=== PATIENT | female | born 1965 | race Caucasian/White ===

== ENCOUNTER 2019-02-14 14:53 | Emergency (ER) | payer OTHER, SELFPAY ==
[2019-02-14 14:56] VITALS: BP 138/87; PULSE 104; RESP 16; TEMP 36.6; O2SAT 96; BMI 28.8
--- NOTE | 2019-02-14 15:43 | ED.DCSUM_ITS ---
- ER Visit Summary Date of Service: 02/14/19 Chief Complaint: Depression History of Present Illness: The patient is a 53 F who presents with depression that is been getting worse for the past couple days. Patient started having a sinus infection 1 week ago. Family states that the patient has not been talking much, eating, or drinking much over the past 2 to 3 days. Patient denies any suicidal thoughts. Patient denies any plan. Physical Examination: Vital signs are stable. Patient is afebrile. Patient is in no acute distress. Oral mucosa is pink and moist. Neck is supple. Trachea is midline. There is no JVD. Heart was regular rate and rhythm. Lungs are clear and equal bilaterally. Abdomen is soft. Bowel sounds are normal. There is no tenderness. Cranial nerves II through XII are intact. There are no focal motor or sensory deficits noted. Patient does have a flat affect and depressed mood. Test Results: CBC shows a mild leukocytosis. This is likely due to her recent sinus infection. Metabolic profile is within normal limits. Urinalysis does not show any evidence of urinary tract infection. Urine tox screen was negative. Serum alcohol level was negative. Emergency Department Course and Treatment: Patient has not been caring for herself at home. Social work was in to evaluate the patient and feels the patient would benefit from placement. I agree with this. Patient is medically cleared. [place] slip was placed in the chart. Social work will attempt to find placement for the patient. Patient and family understand and are agreeable with the plan. All questions were answered. Psychiatry recommended a CT scan of the brain. This was ordered and was negative. Disposition: Transfer to psychiatric facility Impression: 1. Depression This note was generated with [employer] dictation software. It may contain incorrect words, spelling, and punctuation that were not noted in review of the chart prior to signing ED Disposition - Plan for ED Patient: Disposition: Psychiatric Hospital or Unit Diagnosis: Depression Referrals: Abimbola Schwartz NP-C [Primary Care Provider] -
--- NOTE | 2019-02-14 15:45 | RAD_ITS ---
STUDY: X-RAY CHEST REASON FOR EXAM: Female, 53 years old. Depression TECHNIQUE: Frontal view of the chest COMPARISON: None. FINDINGS: The lungs are clear. There are no pleural effusions. There is no pneumothorax. The heart is normal in size. The visualized osseous structures are within normal limits. RAD/Chest 1 View (Portable) IMPRESSION: No acute thoracic pathology. Electronically Signed: Ramo Rizvi, at 16:52 EST Tel , Service support ,
[2019-02-14 16:10] LABS: Absolute Lymphocyte Count 2.43 X10^3/uL (0.83-4.51); Absolute Neutrophil Count 9.5 X10^3/uL (2.0-7.7); Basophil# 0.05 X10^3/uL; Basophil% 0.4 % (0-1); Eosinophil# 0.04 X10^3/uL; Eosinophils% 0.3 % (0-5); Hemoglobin 15.7 g/dL (12.0-15.0); Lymphocyte # 2.43 X10^3/ul (4.0); Lymphocyte % 18.5 % (19-41); Mean Corp Hgb Conc 33.4 g/dL (32-36); Mean Corpuscular Hgb 29.3 pg (27.0-32.0); Mean Corpuscular Volume 87.9 fL (81-99); Mean Platelet Vol. 8.8 fl (6.2-12.0); Monocyte% 7.6 % (0-10); NRBC Flagged by Analyzer 0 % (0-5); Neutrophil # 9.51 X10^3/uL (2.7-7.7); Neutrophil % 72.7 % (47-70); Platelet Count 272 K/mm3 (150-450); RBC Distribution Width CV 12.4 % (11.6-14.6); RBC Distribution Width SD 40.3 fl (35.1-43.9); Red Blood Count 5.35 M/mm3 (4.2-5.4); White Blood Count 13.1 K/mm3 (4.4-11.0)
[2019-02-14 16:20] LABS: Anion Gap 9 (5-15); BUN 16 mg/dL (7-18); Chloride 105 mmol/L (98-107); Creatinine, Serum 0.73 mg/dL (0.55-1.02); EST Glomerular Filtration Rate 89 mL/min (>60); Est Glom Filt Rate - Afr Amer 108 mL/min (>60); Estimated Creatinine Clearance 81.12 ml/min; Glucose 85 mg/dL (74-106); Potassium 3.5 mmol/L (3.5-5.1); Sodium Level 141 mmol/L (136-145)
--- NOTE | 2019-02-14 16:35 | CM.ED ---
Social Work Consult: Depression Informant: Dr. Kaur Chief Complaint: Per patient family patient has been non-verbal since Sunday. Patient has also been not sleeping, eating, drinking, or dressing self per family. Marital/Social History: to Sj for the past 32 years. Patient has four adult children, three of which are actively involved in patient life. Stressors/Triggers: Per patient family. Patient son, Tejas communicated to the family years ago to be bolanos. Per Sj Tejas brought Tejas's patient significant other to [facility] last year and this upset the patient. Patient family stating that it was communicated to Tejas that Tejas is welcome to come to family functions but that Tejas's significant other is not welcome to family events. Tejas as not been at a family event since. Family believe that patient started thinking about this. Patient is agreeing to this statement by slightly shaking head in an up and down motion. Patient with a sinus infection this past weekend and was in a room alone for some time. Patient family thinking that patient started to think about the situation with Tejas as the holiday's were approaching. Living Situation: Lives with spouse. Support/Resources: Patient daughter Autumn and present. Patient has support from family members. Autumn tearful throughout assessment/interaction with patient. Education/Employment: High School diploma. 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 Per Autumn patient had Sj call into work for patient this past week and call off work for patient. Mental Health Treatment/History: No current mental health history. Sj stating that patient did have depression once years ago. Patient was treated for the depression with medication. When asking patient if the medication helped patient, patient slightly shook her head no. Sj stating to believe that the medication was helpful for patient. Abuse Issues: Denies. Was able to ask this to patient without patient family present. Substance Abuse Issues: None per family. Mental Status Exam: As far as can be assessed patient appears to know where patient is and who patient is. Appearance/General Behavior: Non-verbal. Very little movement. Patient would often stair off or close eyes during assessment. Patient presenting as clean. Per Sj it took 30min for Sj to convince patient to take a shower yesterday. Mood/Affect: Depressed. Communication Pattern: Patient does not initiate questions. Patient with very minimal responses to questions. Patient would only slightly shake head yes or no. Thought Process: Patient denies any voices or hallucinations by shaking head no. Risk to Self/Others: Patient denies any suicidal or homicidal thoughts by shaking head no. Assessment: Met with patient and patient family in room. Patient agreeable to family staying in room. Patient present during majority of assessment. Patient family stating that the last meal patient ate of yesterday morning and it was only one egg. Per patient spouse the last time patient slept a whole night was Sunday. Patient daughter has been helping with getting patient dressed and it took maximum encouragement for patient daughter to have patient brush teeth over the past few days. Patient did babysit grandchildren on Sunday and was alone with grandchildren for maybe a few hours per Sj. Autumn stating that when patient was sitting with grandchildren that patient was giving limited verbal responses but would smile at grandchildren. Prior to this past week Autumn stating that patient is typically fun loving and happy. Sj stating that some have asked does she ever not smile prior to this past week. Patient would typically make meals and per Jeffrey the last meal patient made was Sunday evening. Autumn had a birthday celebration this past Sunday and per Jeffrey patient would typically be excited about this but patient canceled and did not go with the family out to dinner. This social worker health services did ask family to leave. This social worker health services asked if anyone hurt or abused patient, patient denies by shaking head no. This social worker health services then explaining to patient possible options from the emergency department such as inpatient psychiatric placement due to patient not caring for self. Patient shaking head no when asked if patient would be open to inpatient psychiatric placement. This social worker health services explaining the possible benefits. This social worker health services inquiring what patient plans are to care for self, patient response was to close eyes with no verbal response. This social worker health services inquiring if patient plans to change anything. Patient shaking head no. Patient family later stating that patient did communicate to family that patient was not planning to change behavior or engage in life further. Active listening and support provided with family. Did attempt sitting with patient in silence, but no response. Patient would close eyes and not make eye contact with this social worker health services. Collaborating with Dr. Kaur. A [place] slip has been put in place due to patient not taking care of self and family being unable to motivate patient to care for self. Recommending inpatient psychiatric placement for patient pending medical clearance. Will continue to follow. Laura BOYLE, REBECCA
[2019-02-14 17:14] LABS: Alcohol, Blood (Medical)-Serum < 3.0 mg/dL
[2019-02-14 17:59] LABS: Bacteria 0 SEEN /hpf (None Seen); Mucous, Urine 0 SEEN /hpf (<or=2+); Squamous Epithelial Cells - UA 0 SEEN /hpf (5-10); White Blood Cells 0 SEEN /hpf (0-5)
[2019-02-14 18:00] LABS: Color, Urine Yellow (Yellow); Glucose, Dipstick Normal (Normal); Ketone-Dipstick 50 mg/dl (Negative); Leukocyte Esterase-Dipstick Negative /ul (Negative); Nitrite-Dipstick Negative (Negative); Occult Blood-Urine 50 /ul (Negative); Protein-Dipstick 100 mg/dl (Negative); Specific Gravity, Urine 1.015 (1.002-1.030); Urine Bilirubin Dipstick Negative (Negative); Urine Clarity Clear (Clear); Urine Urobilinogen 4 mg/dl (Normal); Urine pH 6.5 (5.0 - 8.0)
[2019-02-14 18:15] LABS: Red Blood Cells-Urine 10-25 SEEN /hpf (0-5)
[2019-02-14 18:40] VITALS: BP 152/91; PULSE 67; RESP 14
[2019-02-14 19:03] LABS: Amphetamine Urine VISTA NEGATIVE (<1000 ng/mL); Barbiturate Urine VISTA NEGATIVE (< 200 ng/mL); Benzodiazepine Urine VISTA NEGATIVE (< 200 ng/mL); Cocaine Urine VISTA NEGATIVE (< 300 ng/mL); Ecstacy Urine VISTA NEGATIVE (< 500 ng/mL); Methadone Urine VISTA NEGATIVE (< 300 ng/mL); PCP Urine VISTA NEGATIVE (< 25 ng/mL); THC Urine VISTA NEGATIVE (< 50 ng/mL); Vista UDS pH Range 6
--- NOTE | 2019-02-14 20:22 | CT_ITS ---
STUDY: CT BRAIN WITHOUT CONTRAST REASON FOR EXAM: Female, 53 years old. Altered mental status. Depression. RADIATION DOSAGE (If Supplied By Facility): CTDIvol = ( 44.99 ) mGy, DLP = ( 745.49 ) mGycm TECHNIQUE: Transaxial CT imaging of the brain was performed without administration of intravenous contrast material. Individualized dose optimization techniques were used for this CT. COMPARISON: None. FINDINGS: There is no acute bleed or infarct. There are normal white matter tracts. The ventricles are normal in configuration. There is no hydrocephalus. The visualized paranasal sinuses are clear. The mastoid air cells are well aerated. There is no skull fracture. CT/Brain/Head without Contrast IMPRESSION: No acute intracranial abnormality. Electronically Signed: Ramo Rizvi, at 21:07 EST Tel , Service support ,
[2019-02-14 20:52] VITALS: RESP 18
--- NOTE | 2019-02-14 21:42 | CM.ED ---
Social Work Telephone call from [place], patient has been accepted. Unit: [facility]. Admitting: Dr. Dimas. Call report to: [phone]. Updated patient and patient family along with medical team, all agreeable to plan. [place] faxed. Laura BOYLE, REBECCA
[2019-02-14 22:27] VITALS: PULSE 88; RESP 18
[2019-02-14 23:03] VITALS: BP 149/89; PULSE 81; RESP 16; O2SAT 100
== END 2019-02-14 23:36 ==
PROVIDERS: Emergency Provider Emergency Medicine; Family Provider Nurse Practitioner Family; PCP Nurse Practitioner Family
DX: F32.9 Major depressive disorder, single episode, unspecified (principal)
CPT/HCPCS: 70450; 71045; 80048; 80307; 80320; 81001; 85025; 99283; J7030; A4216; G0480

== ENCOUNTER 2019-02-28 09:00 | Outpatient (RCR) | payer OTHER, SELFPAY ==
--- NOTE | 2019-02-28 09:00 | BH.COMM_ITS ---
Communication Note - Communication with Client Communication Note: Met with pt to complete intial paperwork. No significant changes since pre-admission screening. Completed [place] suicide screening. Low risk. Denies any suicidal ideations, plan, or intent.
--- NOTE | 2019-02-28 09:03 | BH.SGPN.GN ---
Behaviors/Verbalizations/Mental Status: []Client alert and oriented, neatly dressed and groomed. Eye contact good. Motor activity intense. Speech within normal limits. Affect congruent, mood anxious. Thoughts linear, logical, no signs of hallucinations or delusions. Reviewed client?s symptom tracker, no risk for suicidal ideation, plan, or intent as of 02/28/19. Client Response/Progress/Benefit: []Client responded well to session, attentive, but quiet. Client?s first day of PHP tx and reports feeling ?foggy? which client reports belief may be due to medications. Client stated she hopes to learn healthy coping skills while in PHP. Client shard she has a good support system at home which client hopes will make seeking mental health help less scary. Appeared to benefit from connecting with peers and learning about the group setup from peers. First day of PHP tx, no progress at this time. Will continue PHP level of care to prevent decompensation of depressive symptoms, learn healthy coping skills, and increase mood stability. Narrative Note: []
--- NOTE | 2019-02-28 11:15 | BH.SGPN.GN ---
Behaviors/Verbalizations/Mental Status: []Client alert and oriented, casual in appearance. Eye contact good. Motor activity appropriate. Speech within normal limits. Affect constricted, mood anxious. Thoughts linear, logical, no signs of hallucinations or delusions. Client Response/Progress/Benefit: []Client was a passive participant AEB pt providing limited in group discussion, however appeared to listen attentively to peers. Pt struggled with completing worksheet, stating my mental health problems came out of no where. With assistance pt was able to complete worksheet and willing to share with the group. Client reported believes she is in chapter 2 as client is still trying to figure out what happened. Client shared to get to the next chapter she is willing to start setting boundaries by saying no to others when she already has too much she needs to get done. Benefited from group by starting to gain awareness of what may have contributed to her recent mental health problems. Will continue in PHP to increase healthy coping, increase insight and awareness and prevent decompensation. Narrative Note: []
--- NOTE | 2019-02-28 13:38 | BH.PSA_ITS ---
Source of Information - Presenting Problems/Circumstances Problems, Referral Source, Mental Status, Client: Client is a 53-year-old female with a history of MDD with catatonia. Client was admitted to [facility] from 02/15/19-02/27/19 due to worsening depression to the point of catatonia. Client reported improvement since discharge from [facility] and no longer reports catatonia. Client reported becoming non-functional 5 days prior to her psychiatric admission. At this time client was not completing ADLs and stopped speaking. At admission to [facility] client endorsed a depressed mood with anhedonia, inability to focus, lack of energy, isolative behaviors, and lack of motivation. 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 Client unable to function socially, occupationally, or familially. Cooperative during assessment, but quiet and reports limited insight to mental health. Eye contact fair. Speech soft. Thought appear linear and logical. No signs of hallucinations or delusions. Psychiatric Presentation - Psych Issues & Need for Admission Psychiatric Issues:: Major depressive disorder, recurrent, severe, with psychotic features and with catatonia. 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 Past Psychiatric History - Treatment Hx Treatment History: Client was recently admitted to [facility] from 02/15/19-02/27/19 due to worsening depression to the point of catanoia. This is the first time she has ever had catatonia and this was her first psychiatric admisson. Client reported she had one period of depression 20 years ago but was not hospitalized for this. Client took Zoloft for short time and then never had depression again until this episode. Client reports she has no other medication trials other than what she is on currently and Zoloft in the past. Client has no history of suicide attempts or self-harm in the past. First hospitalization:: 02/15/19-02/27/29 [facility] Most recent hospitalization:: 02/15/19-02/27/19 [facility] Medication Trials:: No ECT Therapy:: No Age of first mental health symptoms: First experienced depression approximately 20 years ago after giving . Describe (age, circumstance, etc) any past hospitalizations: At age 53, client was brought to the emergency room at [facility] by her family on February 15, 2019. She was then transferred to [facility] for worsening of depression and catatonia. Client had been becoming increasingly depressed for about only for 5 days prior to admission. Per the discharge summary, client had not been eating, showering, or caring for self and had actually stopped speaking. Client has a difficult time remembering all that occurred prior to her hospitalization. Current providers for mental health treatment (counselor, psychiatrist, caseworker intake, etc.): Client has no current or previous mental health providers. Development & Family of Origin - Childhood Significant Childhood Events: Client described her childhood as a loving and good childhood which was sometimes chaotic. - Family Who currently lives in your home?: Client and her live in [place] on their family farm. Client has four adult children and three of them live close to client and her . Describe family composition:: Client was born and raised in [place] and client describes her childhood as loving and good but sometimes chaotic. Client is the third of 4 sisters, one sister is 7 years older, 6 years older and one 2 years younger than client. Client reported now she is not real close to her sisters. Client denies any abuse growing up verbal physical or sexual. Client got at age 20 and is still to her . Client?s is 52 years old and supportive. Client says they have a great marriage. Client has 4 adult children and 3 live nearby and she is close with them. Client has 1 son who lives in [place] and identifies as homosexual. This is her oldest son at age 32. Client shared her son refused to come to [facility] if his partner was not invited. Client shared their relationship is estranged because client?s oriental orthodox beliefs do not support her son?s ?lifestyle.? Client admits that their strained relationship makes client sad and impacted her worsening symptoms. - Family History Family Hx of Psychiatric or AOD Problems: Grandmother with major depression. Ethnicity - Culture Do you identify yourself with any particular cultural, ethnic background, or community?: No - Sexuality Sexual Orientation: Heterosexual Spirituality - Orthodox Do you currently identify with any organized sabianist?: Worship - Beliefs Is there a particular form of support from this community you can use for your recovery?: Yes Mental Status - Memory Recent Memory: Fair Remote Memory: Fair - Concentration Concentration: Fair - Eye Contact Eye Contact: Fair - Speech Speech: Soft - Thought Process Thought Process: Logical Insight: Poor Judgment: Fair Behavior: Anxious - Orientation Orientation: Time, Person, Place, Situation - Appearance Appearance: Neat/clean - Mood Mood: Anxious, Depressed - Affect Affect: Flattened Suicide Assessment - Suicidal Ideation Have you ever felt like hurting yourself?: Yes Were you using ETOH/drugs at the time?: No Suicidal Intentional Rating Scale (SIRS): Suicidal thoughts (past) - endorsed suicidal ideations prior to being admitted. No current suicidal ideations. Orthodox is a significant protective factor. Physician Notification: If Active suicidal thoughts/Will not contract for safety is checked, contact physician and document in the Physician Notification section below. Violent Behavior/Abuse History - Homicidal Ideation Do you have any homicidal thoughts? If so, explain:: No Is there a known potential victim? If yes, who:: No - Abuse Have you ever been abused?: No - Life Events Are there any other significant life events?: Hardships - estrangement from her oldest son, first psych hospitalization this year, and unable to work due to mental health symptoms. - Safety Do you ever feel threatened in your home? If yes, describe:: No Adult Social History - Age 19 to Present Describe your current support system:: Client identifies her , her three children, and her david to be supports in her life. Substance Use - Substance Substance Use Type: Alcohol - Client reports she drinks alcohol but less than or equal to 1 drink per week. No history of misuse. No rehab Education & Occupational Histo - Education What is your level of education?: High School - School was good for her and she graduated high school but no college. 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 currently unemployed due to mental health symptoms. Service - Service Have you ever been in the ?: No Legal History - Records Have you had any past legal charges?: No Do you have any current legal charges?: No Have you ever been incarcerated? If yes, describe:: No - Court Orders Have you had any past court orders for psychiatric treatment?: No Do you have a present court order for psychiatric treatment?: No Problem Checklist - Current Problem Areas Problem List: Nutritional/Eating pattern changes - prior to hospitalization client was not eating, Depressed mood/sad - Client is not motivated and has mild anhedonia. Client describes her mood as depressed. She feels fuzzy and feels that she is overmedicated. She endorses guilt because she cannot take care of everyone right now and the holidays are approaching. Client endorses decreased concentration and still does not feel like socializing, Anxiety - ruminations, worrying about family and holidays, worrying about money and work., Inattention - reports difficulty concentrating and accomplishing tasks, Psychosis - client had symptoms of catatonia prior to her hospitalization., Additional psychosocial stressors - At [facility] the patient had become estranged from her oldest son who is homosexual and refused to come to [facility] because his parents did not want to invite his partner. This greatly upset the patient and she feels greatly contributed to her nervous breakdown. Discharge Planning Needs - Anticipated Follow-Up Mental Health Center (Name/Phone Number):: n/a Private Therapist/Psychiatrist:: n/a Primary Care Physician: Abhijeet Boone Family and Caregiver Contacts:: Sj Rosales- Release of Information Signed:: Yes Community Agency Contacts: n/a Take Out Waiter/Waitress Name/Phone Number: n/a [employer]andy [employer] Helper's Assessment - Client's Needs What are the client's feelings about the program?: Client reports mental health is new to her and she feels uncomfortable about being in group due to anxiety. What are the client's goals?: Improve functioning, be happier and more engaged, and learn more about her mental health. What are the client's strengths?: Client presents as a kind and motivated individual who wants to improve her mental health. 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 Client's is engaged in client's treatment. Client identifies her david as a protective factor and support in her life. Client reports willingness to learn about coping skills and ways to manage her symptoms. Diagnoses - Diagnoses Diagnosis #1:: Major depressive disorder, recurrent, severe, with cataonia Diagnosis #2:: anxiety NOS Interpretive Summary - Interpretive Summary Interpretive Summary: Client is a 53-year-old female with a history of MDD with catatonia. Client was admitted to [facility] from 02/15/19- 02/27/19 due to worsening depression to the point of catatonia. Client reported improvement since discharge from [facility] and no longer reports catatonia. Client reported becoming non-functional 5 days prior to her psychiatric admission. At this time client was not completing ADLs and stopped speaking. Client denied any symptoms of psychosis prior to this episode and shared she has only ever experienced depression in the past. Family history of depression. No other family history of mental health disorders or substance abuse. Client denies any substance abuse. Occasional drinker. Client denies any history of childhood or adult trauma. Client reports her family is overall a good support. Client is currently estranged from her oldest son due to client?s oriental orthodox beliefs and the son?s sexual orientation. At admission to [facility] client endorsed a depressed mood with anhedonia, inability to focus, lack of energy, isolative behaviors, and lack of motivation. 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 Client unable to function socially, occupationally, or familially. Client reports limited insight to mental health symptoms, triggers, and warning signs. Anxious about the group setting and receiving counseling, but overall receptive to getting help. Treatment Plan Recommendations - Recommendations Guidelines: Special needs identified to be included in the development of an individualized treatment plan regarding past psychiatric history and treatment, developmental events, family relationships/events/culture, past and/or current educational, occupational, social, and residential experience, and legal status. Recommendations:: Client is encouraged to participate in the partial hospitalization program at [facility] as the support, structure, education, individual and group therapy will hopefully prevent worsening of the client?s symptoms which might require rehospitalization. The risk, options and possible side effects and complications of the medication were discussed between client and [facility] psychiatrist. Per IOP psychiatrist?s notes, client understands and accepts these. Client reported feeling safe during the assessment and if it anytime she does not feel safe she will tell us or go to the emergency room. Client was encouraged by IOP psychiatrist not to wean off her medications yet, especially during the stressful holiday season. Client encouraged to establish aftercare as well.
--- NOTE | 2019-02-28 13:38 | BH.MTP ---
[facility] - Patient Information Program Physician:: Kylie Obrien Primary Therapist:: Kimberly Karimi - Psychiatric Diagnoses Psychiatric Diagnoses:: Major depressive disorder, recurrent, severe, with psychotic features and with catatonia. 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 Diagnosis Code(s):: F 31.5 - Estimated LOS Estimated LOS (in weeks):: 1 Problem/Goal #1 - Problem/Goal #1 Stated Goal:: Client will decrease depressive symptoms, isolation, and psychotic symptoms due to Major Depressive Disorder with psychotic features. Description of Barriers: Client stated prior to her psychiatric admission, client was unaware that she was depressed and stated belief it came out of nowhere. Client demonstrates limited insight to her warning signs, triggers, and symptoms of depression and anxiety. Additionally, client is not used to counseling and feels uncomfortable at times. Client reports difficutly concentrating, difficulty making decisions, and has a hard time verbalizing her emotions. Client and her are estranged from her oldest son due to her oldest son being in a relationship with a man. Client's reports belief that this strained relationship may have contributed to client's recent decompensation. Functional Impact: Client is a 53-year-old female with a history of MDD with psychotic features. Client was recently admitted to [facility] from 02/15/19-02/27/19 due to worsening depression to the point of catanoia. Client reported improvement since discharge from [facility] and no longer reports catanoia. Client reported becoming non-functional 5 days prior to her psychiatric admission. At this time client was not completing ADLs and stopped speaking. At admission to [facility] client endorsed a depressed mood with anhedonia, inability to focus, lack of energy, isolative behaviors, and lack of motivation. 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 Client unable to function socially, occupationally, or familially. Goal Relevant Strengths/Supports: Client presents as a kind and motivated individual who wants to improve her mental health. 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 Client's is engaged in client's treatment. Client identifies her david as a protective factor and support in her life. Client reports willingness to learn about coping skills and ways to manage her symptoms. - Objectives Objective #1 Stated Objective: Client will increase social activity to at least one additional activity per week to increase social engagement and break depressive maintenance cycles. Interventions: Therapist will help client explore social connection opportunities, and process ways to get the most out of the experience. Therapist will use behavioral activation and SMART goal setting. Therapist will provide education on maintenance cycles for depression and help client learn how to break unhealthy maintenance cycles. Discharge Criteria: Client will have achieved this objective when can identify attending at least one social activity of interest weekly and report reduced isolation. Target Date: 03/07/19 Review Date: 03/07/19 Status: open Objective #2 Stated Objective: Client will work with therapist to develop a ?safety plan? which includes emergency telephone numbers, 3-4 coping strategies for crisis, lists of supports, positive aspects of her life, and motivations Interventions: Therapist will provide list of crisis phone numbers and resources. Therapist will work with client to identify effective coping strategies, supports, and steps to take in time of mental health crisis. Discharge Criteria: Client will have achieved this goal once she completes her safety plan and is able to utilize coping and thought replacement strategies. Target Date: 03/07/19 Review Date: 03/07/19 Status: open Problem/Goal #2 - Problem/Goal #2 Stated Goal:: Client will decrease ruminating thoughts which cause anxiety. Description of Barriers: Client stated prior to her psychiatric admission, client was unaware that she was depressed and stated belief it came out of nowhere. Client demonstrates limited insight to her warning signs, triggers, and symptoms of depression and anxiety. Additionally, client is not used to counseling and feels uncomfortable at times. Client reports difficutly concentrating, difficulty making decisions, and has a hard time verbalizing her emotions. Client and her are estranged from her oldest son due to her oldest son being in a relationship with a man. Client's reports belief that this strained relationship may have contributed to client's recent decompensation. Functional Impact: Client is a 53-year-old female with a history of MDD with psychotic features. Client was recently admitted to [facility] from 02/15/19-02/27/19 due to worsening depression to the point of catanoia. Client reported improvement since discharge from [facility] and no longer reports catanoia. Client reported becoming non-functional 5 days prior to her psychiatric admission. At this time client was not completing ADLs and stopped speaking. At admission to [facility] client endorsed a depressed mood with anhedonia, inability to focus, lack of energy, isolative behaviors, and lack of motivation. 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 Client unable to function socially, occupationally, or familially. Goal Relevant Strengths/Supports: Client presents as a kind and motivated individual who wants to improve her mental health. 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 Client's is engaged in client's treatment. Client identifies her david as a protective factor and support in her life. Client reports willingness to learn about coping skills and ways to manage her symptoms. - Objectives Objective #1 Stated Objective: Client will identify 2-3 anxiety triggers and 2 coping skills to use when feeling anxious. Interventions: Through group and individual sessions client will increase awareness of anxiety triggers. Therapist will teach client various coping strategies to promote emotional regulation and reduction of anxiety. Therapist will discuss the importance of self-care to avoid burnout and reduce stress. Discharge Criteria: Client will have accomplished this goal when can report at least 2 triggers for anxiety and state using 2 coping strategies to manage symptoms. Target Date: 03/07/19 Review Date: 03/07/19 Status: open
--- NOTE | 2019-02-28 14:11 | BH.MDN_ITS ---
Multi-Disciplinary Note - Note 45-min Individual Time Started:: 12:16 Date: 02/28/19 Purpose of session/treatment goals addressed:: The purpose of this session was to gather information on client's current stressors, symptoms, history, and treatment goals. Another goal was to build rapport and create a safety plan. Eye Contact:: Good Motor Activity:: Appropriate Appearance:: Neat Speech:: Soft Mood:: Dysthymic Affect:: Constricted - tearful Thoughts:: Other - client reports difficulty concentrating, No evidence of hallucinations/delusions noted Staff Interventions:: Therapist used active listening and open-ended questions to explore client's current stressors, symptoms, history, and treatment goals. Therapist used strengths perspective to build rapport and help client identify personal resilience factors. Therapist provided psychoeducation on depression, mental health, and maintenance cycles. Therapist helped cient complete a safety plan that identified warning signs, coping skills, and supports client can use when in crisis. Therapist provided emotional support. Client Response:: Client responded well to session, open to meeting with therapist. Client stated she has never been to counseling and mental health is new to her. Client reported she had depression ?years ago? but she does not believe she has has depression since then. Client admits that she and her family do not know a lot about mental health and client shares feeling like ?this came out of nowhere.? Client began tearful and stated she does not want her family to see her like this. Client stated she feels bad that her daughters and have to help her and client is worried about the holidays ?not being fun.? Client receptive to emotional support and psychoeducation on mental health. Client appeared to benefit from normalizing her symptoms and reminding herself that ?I did not sign up for this.? Client willing to complete a safety plan, and she understands that although she is not currently in crisis, it is important to have something in place. Client identified warning signs which included isolation, not wanting to do things, and feeling low. Client also identified negative self-talk statements that reinforce depression. Client selected coping skills that will help client manage her symptoms. Client selected walking, prayer, and deep breathing as coping skills to try. Client reported her home environment is safe and she does not have access to weapons. Client also wrote down supports that can help client in times of crisis. Risks/Concerns:: Client denies any suicidal ideations, plan, or intent as of 02/28/19. Future oriented and numerous protective factors including family and david. Progress Toward Goals/Plan:: Client?s first day in [facility], no progress to document. Client reports she had depression ?years ago? but she denies any other episodes of depression. Client stated ?it?s like it came out of nowhere.? Client currently endorses anhedonia, crying spells, low motivation, lack of energy, and apathy. Client shared ?I don?t want my family to see me like this.? Client identified her treatment goals as learning to manage depression. Client was receptive to psychoeducation and potential family sessions. Client meets criteria for [facility] level of care due to the severity of her symptoms, recent inpatient hospitalization, and inability to function at her baseline. Will continue tx to prevent decompensation and improve daily functioning. Time Stopped:: 12:54
--- NOTE | 2019-03-03 07:56 | BH.MDN ---
Multi-Disciplinary Note - Note 30-min Individual Time Started:: 12:16
--- NOTE | 2019-03-03 09:05 | BH.SGPN.GN ---
Behaviors/Verbalizations/Mental Status: [] Eye contact is good. Motor activity is appropriate. Appearance is casual. Speech is Appropriate. Mood is depressed. Affect is flat. Thoughts are linear and logical. No evidence of psychosis. Reviewed daily check in sheet and no reports of suicidal ideations or intent. Client Response/Progress/Benefit: [] Pt participated when prompted. Emotion for today is optimistic. Identified some mental health wins which related to managing some stress and completing responsibilities. Briefly discussed some stressors as well. Feels that her first day in [facility] last week went well. Very is very direct and does not elaborate much. Appears to still be self-conscious and shy in group setting. Attentive. Daily symptom tracker notes 3/5 for anxiety and agitation. Notes 2/5 for hopelessness. No progress noted. Will continue in IOP to prevent decompensation, improve daily functioning, and increase healthy coping. Narrative Note: []
--- NOTE | 2019-03-03 10:13 | BH.SGPN.GN ---
Behaviors/Verbalizations/Mental Status: [Client alert and oriented, neatly dressed and groomed. Eye contact good. Motor activity appropriate. Speech within normal limits. Affect constricted, mood anxious, depressed. Thoughts linear, logical, no signs of hallucinations or delusions. ] Client Response/Progress/Benefit: [Client was engaged throughout, able to remain attentive during discussion of the quote and expressed connecting with others reflections throughout. Mostly passive as this is pt first day in [facility] program. Group worked together to identify barriers that keep one from choosing a new and healthier path to mental wellness which included; unhealthy habits, fear of failure, fear of the unknown, apathy, procrastination, lack of awareness, and negative thinking. Attentive during psychoeducation on the chapters of life, providing limited insight to distinguishing factors in each chapter. Benefited from increased awareness and education on barriers to choosing new wellness paths and chapters of life. Progress limited as this is pt first day in program, able to remain engaged as a result. Will continue PHP tx to decrease depression, promote healthy coping, while improving client?s ability to function at baseline. ] Narrative Note: []
--- NOTE | 2019-03-03 10:15 | BH.SGPN.GN ---
Behaviors/Verbalizations/Mental Status: [Client alert and oriented, casually dressed and appropriately groomed. Eye contact good. Motor activity appropriate. Speech within normal limits. Affect congruent, mood anxious. Thoughts linear, logical, no signs of hallucinations or delusions.] Client Response/Progress/Benefit: [Client a more active participant in group than previous session which indicates progress. Providing some input and actively listening throughout. Indicated connecting with discussion regarding importance of change. Group worked together to identify barriers to making changes or taking action in their lives which included: fear of the unknown, fear of failure, comfort zone, denial of need to change, and lack of self-awareness. Group also identified the benefits of taking action which included; increased hope and confidence, improved mental health, no longer feeling ?stuck? or stagnant, and personal growth. Client identified personal areas she would like to take back control of to include: negative self-talk, unrealistic expectations, fear of weakness, and fear of judgement. Shared noticing that her use of avoidance has impacted her ability to ask for help when needed. Benefited from group through increased awareness of personal areas she wants to improve and benefits to taking action towards mental wellness. Progress noted in personal reflection of areas she would benefit from making changes for her mental health. Pt is recommended continued [facility] level of care to improve mood stability, promote consistent application of healthy coping skills, and prevent decompensation.] Narrative Note: []
--- NOTE | 2019-03-03 11:20 | BH.SGPN.GN ---
Behaviors/Verbalizations/Mental Status: []Client alert and oriented, neatly dressed and groomed. Eye contact good. Motor activity appropriate. Speech within normal limits. Affect flat, mood dysthymic. Thoughts linear, logical, no signs of hallucinations or delusions. Client Response/Progress/Benefit: []Client was an active participant AEB client participating in discussion and taking notes throughout session. Client attentive and taking notes during discussion of the different zones of taking action as well as the pros and cons of each. Client agreed with peers that to grow and improve mental health, one must step out of their comfort zone. Client completed worksheet in which she identified a problem area to focus on, a SMART goal to help work on problem area, and identify additional supports needed to be successful. Client identified she wants to be more willing to ask for help as she currently views this as showing weakness. Client identified a small goal which is to talk with her once a day about her feelings. Client stated additional supports needed to be successful with goal which included: her and scheduling time. Appeared to benefit from creating a small goal to help client feel more comfortable asking for help. Client?s second day of [facility]. Will continue tx to prevent decompensation, improve awareness of symptoms, and learn healthy coping skills. Narrative Note: []
--- NOTE | 2019-03-03 14:07 | BH.MDN ---
Multi-Disciplinary Note - Note 30-min Individual Time Started:: 12:25 Date: 03/03/19 Purpose of session/treatment goals addressed:: The purpose of this session was to address current symptoms, stressors, and negative thoughts. Another goal was to set small behavioral activation goals to promote opposite action. Eye Contact:: Good Motor Activity:: Appropriate Appearance:: Neat Speech:: Soft Mood:: Dysthymic Affect:: Congruent - tearful at times Thoughts:: Other - reports difficulty concentrating and blanking., No evidence of hallucinations/delusions noted Staff Interventions:: Therapist used active listening and open-ended questions to explore client's current stressors, symptoms, and negative thoughts. Therapist provided psychoeducation on anxiety, depression, and maintenance cycles. Therapist provided emotional valiation and support to normalize client?s symptoms and negative thought patterns. Therapist taught client the relationship between thoughts, emotions, and behaviors and how these impact one?s mental health. Client Response:: Client responded well to session, open to meeting with therapist. Client reported that she continues to feel foggy and is having a hard time concentrating. Client was wondering if some of this was due to her medications. Client will see the program psychiatrist and nurse next week and will be able to ask her medication questions then. Client receptive to learning about depressive maintenance cycles and how depression impacts one's outlook on life. Client connected with depression causing a negative outlook on self, the future, and other's views about her. Client shared she often thinks of herself as lesser value, weak, and she worries that the holidays will not be happy. Client read through a worksheet providing psychoeducation on depression and anxiety. Client able to gain more awareness of her symptoms and possible causing for depression. Client reports belief her depression was caused by the trigger of loss. Client no longer has a relationship with her oldest son due to client's son being [place]. Client also feels sad that her adult children no longer need her as much anymore. Client receptive to learning about maintenance cycles and how one can stay stuck in a depressive cycle. Client able to recognize that she has been stuck in a depressive cycle before as her negative thoughts have led to isolation and missing out on positive experiences. Client open to practicing behavioral activation as it is one way to break out of a depressive maintenance cycle. Client learned A.C.E (accomplish, closeness, and enjoyment). Client will practice A.C.E for homework. Risks/Concerns:: Client denies any suicidal ideations, plan, or intent as of 03/03/19. Future oriented throughout session. Progress Toward Goals/Plan:: Client?s second day in [facility], limited progress to document. Client reports limited insight to her syptoms and mental health, but was receptive to learning about this during session. Client was able to connect with the maintenance cycles of depression which helped client gain awareness of potential triggers for depression. Client currently endorses anhedonia, crying spells, low motivation, lack of energy, and apathy. Client will continue tx to prevent decompensation and improve daily functioning Time Stopped:: 13:00
--- NOTE | 2019-03-04 09:08 | BH.SGPN.GN ---
Behaviors/Verbalizations/Mental Status: []Client alert and oriented, casual dress, hygiene tended to. Eye contact good. Motor activity tense. Speech within normal limits. Affect constricted. Mood anxious. Thoughts linear, logical, no signs of hallucinations or delusions. Reviewed client?s symptom tracker, no signs of suicidal ideation, plan, or intent as of today. Client Response/Progress/Benefit: []Pt was an engaged participant in group discussion, providing input and openly sharing thoughts with the group. Pt stated current stressor is needing to get her holiday shopping complete, but is unsure of what to get others. Pt shared she also doesn't like to be in large crowds which cam make it difficult to go to certain places to shop. Pt reported mental health positive is completing some chores yesterday after IOP and helping take care of her grandchildren. Identified additional mental health positive as sharing handouts about mental health with her and mom. Emotion for today is optimistic. Progress noted with pt starting to increase understanding and awareness of mental health. Continued IOP tx recommended to increase healthy coping skills, increase awareness of distorted thoughts, and prevent decompensation. Narrative Note: []
--- NOTE | 2019-03-04 10:15 | BH.SGPN.GN ---
Behaviors/Verbalizations/Mental Status: []Client alert and oriented, neatly dressed and groomed. Eye contact good. Motor activity appropriate. Speech within normal limits. Affect constricted, mood dysthymic. Thoughts linear, logical, no signs of hallucinations or delusions. Client Response/Progress/Benefit: []Client active participant during group AEB client?s engage in the activity and occasional contributions to discussion. Client reported it is important to have a variety of social supports and stated ?supports catch us if we fall.? Client helped group brainstorm potential consequences of not having a support system and barriers to developing social supports, which included: feeling like a burden, poor communication, cognitive distortions, fear of rejection and judgement, being closed-minded, and being afraid to ask for help. Client shared it is hard for her to ask for help. Group identified benefits of social support as reminder to use healthy coping skills, positive reinforcement, constructive feedback, less anxiety, different perspective, less self-doubt, resources, and accountability. Client was passive during the group activity and was open to feedback from others. Appeared to benefit from gaining awareness of barriers that keep people from seeking social support as well as identifying the benefits of increasing support. Progress limited as client recently started PHP. Will continue to prevent decompensation and increase self-awareness. Narrative Note: []
--- NOTE | 2019-03-04 11:15 | BH.SGPN.GN ---
Behaviors/Verbalizations/Mental Status: [Pt alert and oriented, eye contact good, casually and neatly dressed, motor activity appropriate, speech normal rate and tone, quiet, mood anxious and depressed, congruent affect, thoughts linear and intact, no evidence of delusions or hallucinations.] Client Response/Progress/Benefit: [Client engaged and remained an attentive participant AEB client listening and nodding during discussion and participating in activity. Client contributed some input to discussion about the different types of support and benefits different types of support can provide. Client worked with the group to identify strategies for improving development of new supports and better utilization of current supports. Did well to challenge herself to be more engaged in session than prior groups. Client identified she would like to improve use of internal supports and indicated that this would benefit her mental health by increasing self-esteem and ?help me move forward?. Client identified her first step is to begin to recognize potential healthy coping skills and start keeping track of what works and what doesn?t. Client seemed to benefit from identifying a type of support she would like to improve upon and creating actionable steps to promote follow-through. Client to continue PHP level of care to prevent decompensation, improve self-esteem, reduce depression, and promote utilization of healthy coping skills.] Narrative Note: []
--- NOTE | 2019-03-04 13:41 | BH.MDN ---
Multi-Disciplinary Note - Note 45-min Individual Time Started:: 12:18 Date: 03/04/19 Purpose of session/treatment goals addressed:: The purpose of this session was to address current symptoms, stressors, and negative thoughts. Another goal was to teach client the cognitive distortions and review behavioral activation. Eye Contact:: Fair Motor Activity:: Appropriate Appearance:: Neat Speech:: Soft Mood:: Anxious, Dysthymic Affect:: Constricted Thoughts:: Other - reports feeling foggy, No evidence of hallucinations/delusions noted Staff Interventions:: Therapist used active listening and open-ended questions to explore client's current stressors, symptoms, and negative thoughts. Therapist provided psychoeducation on cognitive distortions, depression, and maintenance cycles. Therapist provided emotional valiation and support to normalize client?s smyptoms and negative thought patterns. Therapist taught client the relationship between thoughts, emotions, and behaviors and how these impact one?s mental health. Therapist also taught client the importance of practicing self-awareness. Therapist gave client homework to continue practicing behavioral activation and to practice self-awareness. Client Response:: Client responded well to session, open to meeting with therapist. Client stated she completed her homework from the previous session which was to practice A.C.E. Client was able to clean, get her grandkids down for nap, talk with her mother about her mental health, and read with her grandkids yesterday. Client stated her told her she seems better when she is active and client agrees. Client shared talking with her and mother about client's depression went pretty good. Client was able to show them statistics and causes of depression. Client reports belief that she is realizing that has felt some of these symptoms longer than she thought. Client receptive to learning about the common cognitive distortions and how they impact one's emotions and behaviors. Client learned about overgeneralizing, personalizing, disqualifying the positives, catastrophizing and minimizing, and shoulds and musts. With help from therapist, client was able to identify times she used these distortions and how they impacted her. Client appeared to connect most with personalizing, disqualifying the positives, and shoulds. Client and therapist discussed how these negative thoughts can reinforce depressive maintenance cycles. Client receptive to practicing being mindful of her thoughts tonight and to continue practicing A.C.E. Risks/Concerns:: Client denies any suicidal ideations, plan, or intent as of 03/04/19. Progress Toward Goals/Plan:: Client is demonstrating progress towards her treatment goals as shown by her report of completing the homework and talking to her family about mental health. However, client continues to struggle with recognizing her mental health symptoms and reports feeling foggy. Client endorses a depressed mood, anhedonia, lack of energy, and increased fatigue. Client will continue PHP level of care to prevent decompensation and continue to learn about her mental health and how to manage symptoms. Time Stopped:: 12:59
--- NOTE | 2019-03-05 10:27 | BH.SGPN.GN ---
Behaviors/Verbalizations/Mental Status: [Client alert and oriented, neat and casually dressed and appropriately groomed. Eye contact fair. Motor activity appropriate. Speech WNL. Affect constricted, mood anxious, dysthymic. Thoughts linear, logical, no signs of hallucinations or delusions.] Client Response/Progress/Benefit: [Client was a more active participant than previous groups as evidenced by providing increased input throughout discussion. She appeared to listen attentively to others, as well as taking notes. Client agreed that she experiences automatic thoughts and often these thoughts can be negative. Client connected with the discussion about how distorted thought patterns can reinforce mental health symptoms. Client noted that she has previously fallen into a pattern of catastrophizing in a situation which can lead to increased anxiety. Client indicated relating to examples of this provided by the group. Client agreed that cognitive distortions can lead to increased depression, anxiety, and impact relationships. Appeared to benefit from increasing awareness of cognitive distortions and how they can impact emotions and behaviors. Client to continue PHP to stabilize moods, improve emotional regulation, and prevent decompensation.] Narrative Note: []
--- NOTE | 2019-03-05 11:25 | BH.SGPN.GN ---
Behaviors/Verbalizations/Mental Status: []Client alert and oriented, neatly dressed and groomed. Eye contact fair. Motor activity tense. Speech within normal limits. Affect constricted, mood anxious. Thoughts linear, logical, no signs of hallucinations or delusions. Client Response/Progress/Benefit: []Client?passive participant during session AEB client providing contributions throughout group session. Client seemed to connect with others about the importance of needing to have awareness and put forth the effort to challenge, reframe, and replace distorted thought patterns. Client worked cooperatively with group to challenge distorted thoughts and was attentive in learning strategies to combat distortions. Client expressed she was having a difficult time coming up with her own distorted thought. Client appeared overwhelmed during session and confused at times. Client seemed to benefit from increased awareness of cognitive distortions. Client to continue PHP level of care to increase awareness and understanding of mental health, increase healthy coping and prevent decompensation. Narrative Note: []
--- NOTE | 2019-03-05 11:38 | BH.NA ---
Physical Data - Vital Signs Temperature: 97.9 F Pulse Rate: 66 Respiratory Rate: 16 Blood Pressure: 120/62 - Height/Weight Height: 1.63 m Weight:: 79.379 kg Weight in Pounds: 175.0 lbs Current Medication Compliance - Medication Compliance Do you take your medication as prescribed?: Yes Nutritional History - Appetite Nutritional Instructions:: If client shows signs of a swallowing problem, weight change of 10 pounds or more in the last month, or is on a diabetic diet, the physician will review and request a dietitian consult, as appropriate. All unintentional weight loss will be referred to the physician for decision on need for dietitian consult. Describe your appetite:: Fair Have you noticed a change in your eating habits lately?: Yes - client states slightly decreased Functional Assessment - Sleep Pattern Describe any problems with sleeping: Client states she feels her sleep is good. States she sleeps 9-10 hours a night and she states this was her normal before current symptoms started. - Activities Motor Activity:: Functional Sensory/Communication Assess - Communication Problems Do you have difficulty understanding what people are saying?: No What is your primary language?: Serbian Medical Problems/History - Musculoskeletal Conditions Musculoskeletal: Arthritis - Pain Assessment Do you have acute or chronic pain?: No Substance Abuse - Substance Abuse Please describe substance abuse in the last 30 days:: Client states her alcohol use is only very occasionally. Client denies any tobacco or substance use. Mental Status Summary - Mental Status Significant Findings/Observations on Appearance and Mood:: Client is alert and oriented x 4. Client is neatly groomed and cooperative for assessment. Client makes appropriate eye contact during assessment. Clients rate and volume normal of speech, speech clear and coherent. Client appears mildly depressed with mild anhedonia. Client able to make logical associations in conversation with normal processing. Client denies delusions or hallucinations. Client denies SI. Client with good attention during assessment and asked questions she had. Suicide Assessment - Suicidal Ideation Are you currently or have you been suicidal in the past?: No Physician Notification: If Active suicidal thoughts/Will not contract for safety is checked, contact physician and document in the Physician Notification section below. Past Psychiatric History - MH Treatment Hx Past Psychiatric Medications:: Zoloft- over 20 years ago for short period of time with depression Age of first mental health symptoms: Client states she had depression over 20 years ago, but has not had problems with depression since. Client states current episode with depression symptoms started in January 2019. Describe (age, circumstance, etc) any past hospitalizations: Client was brought to emergency room 02/14/19 with depression symptoms and was hospitalized at [facility]. Current providers for mental health treatment (counselor, psychiatrist, behavioral health case manager, etc.): none Fall Risk Assessment - Age Age: Less than 60 - Mental Status Mental Status: Willing & able to ask for assistance when needed - Physical Status Physical Status: No problems - Impairments Impairments: None - Elimination Elimination: Continent AND independent - Gait or Balance Gait or Balance: Walks independently - Hx of Falls History of falls in the past 6 months: No known history - Medications/Substances Psychotropics:: Antidepressants, Antipsychotics, Anxiolytics (e.g. benzodiazepines) Medications/substances used within the past 24 hours or ordered to administer: 3 or more of the medications/substances listed above - Total Score Total Points:: 2 RN Summary of Impressions - Impressions Recommendations: Include psychiatric and medical issues, treatment planning recommendations, and discharge planning needs. 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 Client states she had recently had a sinus infection before that and felt decreased energy after that. Client was lethargic, having crying spells, low motivation and low energy, and not talking. When client asked if it was because she couldn't talk or didn't want to talk, client states I really don't know. I don't know what was going on. I've never felt like that before. Client states she feels somewhat better now after hospitalization and starting medications, and client answers all questions during assessment and asks some questions herself. Client states she does feel like she feels fuzzy and foggy still. When asked about stressors, client states I really don't know what brought this on at all. PHP will promote gains and prevent further decompensation while providing social support, improve depression management, and promote skills training.
[2019-03-05 12:04] VITALS: BP 120/62; PULSE 66; RESP 16; TEMP 36.6
--- NOTE | 2019-03-05 13:12 | PCM.BH.PSYEV ---
Psychiatric Evaluation - Initial Evaluation Initial Evaluation: History of Present Illness: [] Patient is a 53-year-old female who was brought to the emergency room and [place] by her family on February 15, 2019. She was then transferred to [facility] for worsening of depression and catatonia. The patient had been becoming increasingly depressed for about only for 5 days prior to admission. She had not been eating, showering, or caring for self and had actually stopped speaking. The patient had also endorsed suicidal ideations prior to being admitted. Patient also had some paranoia and felt that the staff on the unit were not watching out for her. 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 At [facility] the patient had become estranged from her oldest son who is homosexual and refused to come to [facility] because his parents did not want to invite his partner. This greatly upset the patient and she feels greatly contributed to her nervous breakdown. Since discharge from the hospital on February 27, 2019 the patient says she has been not able to function well still. She describes her mood as depressed. She feels fuzzy and feels that she is overmedicated. She endorses guilt because she cannot take care of everyone right now and the holidays are approaching. She also occasionally feels worthless. She denies hopelessness. She states that her mood deterioration was pretty rapid and sudden around [facility]. 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 She lives with her and her 23-year-old youngest daughter. She has 2 other adult children who live less than 1/4 mile away. 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 She does not like the job and it stresses her out. She is considering taking early penitentiary from this job. She denies any hallucinations or delusions now. She is not motivated and has mild anhedonia. She does enjoy her grandkids currently. She is she feels stressed and anxious that she has not completed her [place] shopping and has wrapping to do. In addition she usually has the whole family over and cooks breakfast for them on [place]. She is not back to normal at all and feels she is groggy. For primary support she has her or coworker. She denies any history of self-harm, eating disorder, OCD, seizure or head trauma. Per her the patient's baseline is happy, active. She also endorses decreased concentration and still does not feel like socializing in. Patient gets 9 hours of sleep at night. She is eating better now. She is reticent but answers questions appropriately. She denies any thoughts of , suicidal or homicidal ideation. She denies any plan. She has no access to weapons. Current Psychiatric Medications: [] Risperdal 2 mg nightly and 1 mg p.o. daily (total of 3 mg for the past 2-1/2 weeks); Zoloft 50 mg p.o. daily (x17 days); lorazepam 0.5 mg p.o. twice daily (since admission). She is also on a low-dose control pill. Past Psychiatric History: [] Was her first psych admit in present illness. This is the first time she has ever had catatonia. She had one period of depression 20 years ago but was not hospitalized for this. She took Zoloft for short time and then never had depression again until this episode. She has no other medication trials other than what she is on currently. And the Zoloft in the past. She has no history of suicide attempts or self-harm in the past. Substance Use History: [] Non-smoker. No marijuana use. No other drug use. She does drink alcohol but less than or equal to 1 drink per week. No rehab ever. Allergies: [] No known allergies Medications: [] Psych meds only as an present illness Past Medical History: [] She has a history of back surgery in 2015. She is a 4 para 4 Ab0. She is perimenopausal and is on low-dose control pills. Family Psychiatric History: [Grandmother with major depression. Otherwise negative. No substance problems in the family. No suicides in the family.] Personal/Social History: [] Patient was born and raised in [facility]. She had a loving and good childhood which was sometimes chaotic. She is the third of 4 sisters. She has a sister 7 years older, 6 years older and one 2 years younger than her. She is not real close to her sisters. She denies any abuse growing up verbal physical or sexual. School was good for her and she graduated high school but no college. She got at age 20. Her is 52 years old and supportive and that she says they have a great marriage. She has 4 adult children. 3 live nearby and she is close with them. She has 1 son who lives in [place] and identifies as homosexual. He is her oldest son at age 32. He refused to come to Thanksgiving of his partner was not invited and this caused the patient's worsening. The patient and her and family are Pentecostal and the and patient agree that they do not agree with a homosexual lifestyle. Legal History: [] Negative Review of Systems: [] Except as noted in present illness Vital Signs: [] Reviewed in nursing notes Mental Status Examination: [] Patient is a 53-year-old female who appears normal for stated age. She is casually dressed and groomed with good hygiene. She is cooperative during the interview with no psychomotor agitation or retardation. She has good eye contact and her speech is normal rate and rhythm and with no pressure. Her mood is depressed. Her affect is constricted and consistent with depression. There is no evidence of catatonia. Thought process: Goal-directed and organized and normal rate. Thought content: No evidence of suicidal or homicidal ideation. No evidence of hallucinations or delusions. She is alert alert and oriented to person place and time. Intelligence is normal. Judgment is intact. Insight: Son present. Impulsivity: Low. Diagnoses: [] [place] I: [] Major depressive disorder, recurrent, severe, with psychotic features and with catatonia. 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 [place] II: [] Deferred [place] III: [] Negative [place] IV: [] Primary support issues (ongoing estrangement with 1 of her sons), work stress Plan: [] Patient will do the partial hospitalization program at [facility] as a support, structure, education, individual and group therapy will hopefully prevent worsening of the patient's symptoms which might require rehospitalization. The risk, options and possible side effects and complications of the medication were discussed with the patient and she understands and accepts these. The patient felt safe during the interview and if it anytime she does not feel safe she will tell us or go to the emergency room. A long discussion was had over the patient's desire to wean her medications. I discussed with the patient that we could wean the Ativan slightly but if at anytime she experiences worsening her symptoms she is to return to the original dose of 0.5 mg p.o. twice daily. I discussed with the patient that there is a risk of weaning the medication during a stressful time like [place] and the holidays which could result in the patient having to go back in the hospital. For this reason I discussed I decided not to wean any of the medications at this time. I told the patient she could try taking one half of an Ativan tablet in the morning instead of a whole 1 and if she tolerates that she can do that but she should still take 1 at bedtime. I will see the patient in 1 week. I had a long discussion with the patient that she is to not do her [place] shopping or wrapping. She is not to have everyone over and do the cooking herself. She can help others with babysitting, cooking and other chores but she needs to drastically limit her chores in the next few weeks.
--- NOTE | 2019-03-05 13:26 | BH.DR.ITP ---
Initial Treatment Plan - Patient Information Visit Information: ADMISSION DATE: EXPECTED LOS: 4-6 weeks - Problems/Symptoms Problem #1:: Depression Symptom:: Sadness, isolation, decreased concentration Problem #2:: Anxiety Symptom:: Worry, rumination
--- NOTE | 2019-03-05 14:05 | BH.MDN_ITS ---
Multi-Disciplinary Note - Note 30-min Individual Time Started:: 12:28 Date: 03/05/19 Purpose of session/treatment goals addressed:: The purpose of this session was to address current symptoms and stressors. Another goal was to review homework and teach client calming skills. Eye Contact:: Good Motor Activity:: Appropriate Appearance:: Neat Speech:: Soft Mood:: Anxious, Depressed Affect:: Constricted Thoughts:: Other - reports feeling blank, No evidence of hallucinations/de lusions noted Staff Interventions:: Therapist used active listening and open-ended questions to explore client's current stressors and symptoms. Therapist reviewed client?s homework and client?s experience with behavioral activation. Therapist reviewed the connection between emotions, behaviors, and thoughts. Therapist taught client various calming skills to help client manage stress and reduce anxiety. Client Response:: Client responded well to session, open to meeting with therapist. Client shared she did her homework and completed more behavioral activiation activities. Client stated she read with her grandchildren again and spent time with her . Client shared she struggled with the cognitive distortions, but she showed the worksheet to her . Client had the cognitive distortions group today and client reported she continues to be confused on how to challenge distortions. Client and therapsit practiced thought challenging together. Client more receptive to learning about calming coping skills. Client receptive to practicing deep breathing, the 5-senses, progressive muscle relaxation, and visualization. Client was provided a worksheet with the calming coping skill examples. Client receptive to practicing these for homework. Risks/Concerns:: Client denies any suicidal ideations, plan, or intent as of 03/05/19. Progress Toward Goals/Plan:: Client is demonstrating progress towards her treatment goals as shown by her report of engaging in behavioral activation acti [facility]. Client stated this helped client feel somewhat better, but she continues to feel ?not like myself.? Client continues to struggle with recognizing her mental health symptoms and reports ongoing difficulty concentrating. Client endorses a depressed mood, anhedonia, lack of energy, fatigue, and anxiety. Client will continue PHP level of care to prevent decompensatio, promote use of healthy coping skills, and improve daily functioning. Time Stopped:: 13:03
--- NOTE | 2019-03-06 10:07 | BH.SGPN.GN ---
Behaviors/Verbalizations/Mental Status: [Client alert and orient. Appearance neat and casual, appropriately groomed. Speech an appropriate rate and soft tone. Motor activity WNL. Mood anxious, euthymic, affect constricted. No evidence of delusion or hallucinations.?] Client Response/Progress/Benefit: [Pt receptive of session, more engaged than in prior groups AEB increased input provided and asking questions throughout. Pt contributed to discussion on the importance of healthy communication and factors that can impact communication skills. Pt worked with the group to identify barriers to maintaining healthy communication which include: making assumptions, shutting down, not listening, and misinterpretation of body language.?Pt indicated connecting with the common communication barriers identified by the group. Discussed benefits of healthy communication on mental health and maintaining healthy relationships which included: personal growth, increased trust, improved self-confidence, increased connection and meaning within relationships. Pt receptive of and appeared to benefit from psychoeducation portion discussing different styles of communication. Progress noted in pt ability to identify current communication style and impacts on mental health. Pt noted identifying with passive, at times passive-aggressive communication and shared that this has led to feeling taken advantage of at times but has also benefitted her by leading to increased awareness as well. Pt to continue in IOP tx to continue to promote healthy change behaviors, reduce depression and anxiety, improve healthy communication, and prevent decompensation.] Narrative Note: []
--- NOTE | 2019-03-06 11:18 | BH.SGPN.GN ---
Behaviors/Verbalizations/Mental Status: []Client alert and oriented, neatly dressed and groomed. Eye contact good. Motor activity appropriate. Speech within normal limits. Affect constricted, mood anxious. Thoughts linear, logical, no signs of hallucinations or delusions. Client Response/Progress/Benefit: []Client active participant AEB her positive contributions and engagement throughout, nodding throughout discussion. Client further reviewed their communication style and how that impacts mental health. Client took a mostly passive role during the activity that encouraged clients to practice clear, specific communication. Group identified strategies that helped the group communicate more effectively during the activity. Client agreed with peers that it is important to try and find common ground when communicating. Client identified her communication goal which is to practice increasing self-awareness of how her communication style impacts her. Client seemed to benefit from increased insight into how her communication style impacts mental health and identifying strategies for increasing effective communication skills. Progress noted as client reports applying healthy coping skills and appears more engaged during group. Will discharge from [facility] and step down to IOP level of care to promote gains made in [facility]. Narrative Note: []
--- NOTE | 2019-03-06 13:49 | BH.DS ---
Discharge Summary - Demographics Date of Admission:: 02/28/19 Discharge Date: 03/06/19 Presenting Problems at Admission:: Client is a 53-year-old female with a history of MDD with psychotic features. Client was recently admitted to [facility] from 02/15/19-02/27/19 due to worsening depression to the point of catanoia. Client reported improvement since discharge from [facility] and no longer reports catanoia. Client reported becoming non-functional 5 days prior to her psychiatric admission. At this time client was not completing ADLs and stopped speaking. At admission to [facility] client endorsed a depressed mood with anhedonia, inability to focus, lack of energy, isolative behaviors, and lack of motivation. 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 Client was unable to function socially, occupationally, or familially. Discharge Diagnoses:: Major depressive disorder, recurrent, severe, with psychotic features and with catatonia. 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 Reason for Discharge:: Client has made progress while in [facility] as shown by her reduced anxiety, accomplishment of treatment goals, and report of using coping skills. Client to step down to [facility] level of care to promote mood stability and further reduce symptoms. - Treatment Progress During Treatment & Response: Client responded well to [facility] treatment as she she was consistent with attendance and was attentive during sessions. Client is passive during group sessions, but she takes notes and is able to connect with peers. Client was mostly consistent with completing homework and reported reduced isolative behaviors due to practicing behavioral activation. Client continues to demonstrate motivation to improve her mental health and functioning. Client was receptive to learning new skills and increasing self-awareness. Client plans to bring in her while in [facility] to help her supports understand client?s mental health and learn how to help her. Client has demonstrated progress during [facility] as client reports reduced anxiety, better understanding of her mental health, and less isolation. Client is working on increasing awareness of negative thought patterns that reinforce depression and learning how to combat these. Client continues to struggle with verbalizing her emotions, making decisions, and focusing. Issues Still to be Addressed:: Client has made strides towards progress during her time in [facility], but she can continue to increase healthy coping skills to manage depression, anxiety, and negative thinking. Client is learning about her mental health, but she continues to struggle with identifying warning signs and verbalizing her emotions. Client can benefit from ongoing work on increasing self-awareness, learning healthy coping skills, and combating distortiosn that reinforce anxiety and depression. Discharge Recommendations/Instructions:: Recommended to step down to IOP level of care to maintain gains, prevent decompensation, and further stabilize mood. Client reports less isolative behaviors and less anxiety. Client would benefit from continued support, increased coping skills, and increased awareness of mental health symptoms. Discharge Handout: Complete Discharge Handout with client on aftercare options and continuity of care.
--- NOTE | 2019-03-06 13:53 | BH.MDN_ITS ---
Multi-Disciplinary Note - Note 30-min Individual Time Started:: 12:22 Date: 03/06/19 Purpose of session/treatment goals addressed:: The purpose of this session was to address current symptoms, stressors, and progress in [facility]. Another goal was discuss stress and stress management strategies. Eye Contact:: Good Motor Activity:: Appropriate Appearance:: Neat Speech:: Soft Mood:: Anxious Affect:: Constricted Thoughts:: Other - reports feeling foggy still., No evidence of halluc inations/delusions noted Staff Interventions:: Therapist used active listening and open-ended questions to explore client's current stressors, symptoms, and progress while in [facility] Therapist reviewed client?s homework and further encouraged client to practice calming skills. Therapist gently challenged client?s negative thoughts and helped client reframe them. Therapist provided psychoeducation on stress and stress management. Therapist helped client identify stressors in her control and discussed ways to cope with these stressors. Client Response:: Client responded well to session, open to meeting with therapist. Client shared she did not get her homework done, but she plans to practice calming coping skills tonight. Client reported she continues to worry about the upcoming holidays as client fears ?they won?t be fun? due to client?s depression. Client also stated she worries that she is not making as much progress as she should be. After discussion, client was able to recognize that she has some unrealistic expectations for her progress. Client able to reframe her expectations of progress and acknowledge that it is okay to take on less responsibilities over the holidays. Client and therapist discussed stress and the stressors currently impacting client. Client acknowledged that many of her stressors are out of client?s control. Client shared she can reduce holiday stress by asking for help, doing less gift wrapping, and focusing on one day at a time. Client and therapist discussed medication and client will be meeting with psychiatrist on Sunday to see if she can decrease any of her medications. Client is to continue practicing behavioral activation and calming coping skills. Risks/Concerns:: Client denies any suicidal ideations, plan, or intent as of 03/06/19. Progress Toward Goals/Plan:: Client is demonstrating progress towards her treatment goals as shown by her report of decreased isolation, improved energy, and increased self-awareness. Client continues to struggle with feeling ?foggy? but she is starting to feel more less depressed. Client has not demonstrated any symptoms of cataonia and her affect has slightly improved. Client reports her family has been very supportive and helpful. Client continues to endorse a depressed mood of decreased intensity, low energy, fatigue, and anxious thoughts. Will discharge from [facility] and step down to IOP level of care to promote gains made in [facility] and improve daily functioning. Time Stopped:: 12:57
--- NOTE | 2019-03-07 09:00 | BH.SGPN.GN ---
Behaviors/Verbalizations/Mental Status: [] Eye contact is good. Motor activity is appropriate. Appearance is casual. Speech is Appropriate. Mood is anxious. Affect is congruent. Thoughts are linear and logical. No evidence of psychosis. Reviewed daily check in sheet and no reports of suicidal ideations or intent. Client Response/Progress/Benefit: [] Pt spoke at times during group discussion on healthy ways to manage anger and the consequences of not expressing anger in a healthy way. Emotion for today is optimistic. Daily symptom tracker notes 2/5 for anxiety and agitation. Notes 1/5 for hopelessness. Shared that she is getting back into the routine of life after hospitalization and her family has been supportive. Increased exercise on the treadmill. Talked about the stress of the holidays and her desire to take a step back this year to h Narrative Note: []
== END 2019-03-06 14:00 | disposition home or self-care (01) ==
LOC: BHPHP 09:00
PROVIDERS: Family Provider Family Medicine; PCP Family Medicine; Referring Provider Psychiatry & Neurology Psychiatry; Visit Provider Psychiatry & Neurology Psychiatry
DX: F31.5 Bipolar disorder, current episode depressed, severe, with psychotic features (principal); F41.8 Other specified anxiety disorders
CPT/HCPCS: H0035; 90832; 90834; G0410

== ENCOUNTER 2019-03-07 09:00 | Outpatient (RCR) | payer OTHER, SELFPAY ==
--- NOTE | 2019-03-07 09:00 | BH.SGPN.GN ---
Behaviors/Verbalizations/Mental Status: [] Eye contact is good. Motor activity is appropriate. Appearance is casual. Speech is Appropriate. Mood is anxious. Affect is congruent. Thoughts are linear and logical. No evidence of psychosis. Reviewed daily check in sheet and no reports of suicidal thoughts or intent. Client Response/Progress/Benefit: [] Pt participated at times during the group discussion. More active and engaged that in the past. Emotion for today is up and down. Daily symptom tracker notes 1/5 for anxiety and agitation. Notes 2/5 for hopelessness. Discussed the stress associated with the holidays. Insight that it is most beneficial to give herself time to heal by decreasing her expectations and role during the holidays. Anxiety and fear. Progress noted per pt. Benefited from group support, encouragement, and feedback. Will continue in IOP to prevent decompensation, increase functioning, increase health coping strategies. Narrative Note: []
--- NOTE | 2019-03-07 10:10 | BH.SGPN.GN ---
Behaviors/Verbalizations/Mental Status: []Client alert and oriented, casual dress and good hygiene. Eye contact fair. Motor activity appropriate. Speech within normal limits. Affect constricted, mood anxious. Thoughts linear, logical, no signs of hallucinations or delusions. Client Response/Progress/Benefit: [] Client was an passive participant AEB not providing input during discussion. Attentive during psychoeducation. Worked with the group to identify benefits to making changes in our lives which included: increasing resilience, setting and accomplishing goals, and seeing setbacks as a learning tool. Group then identified barriers to change or what keeps us from making changes which included: uncomfortable emotions, low motivation, lack of support, closed mindedness, high expectations, and stubbornness. Client showed increased engagement during group activity where they identified and discussed the emotions related to change. Client was attentive during psychoeducation on the change process. Benefited from increased awareness and understating of emotions, benefits, and barriers related to change. Will continue IOP tx to prevent decompensation, stabilize moods and maintain gains. Narrative Note: []
--- NOTE | 2019-03-07 15:49 | BH.MTP ---
Master Treatment Plan - Patient Information Program Physician:: Dr. Kylie Obrien Primary Therapist:: Kimberly Karimi - Psychiatric Diagnoses Psychiatric Diagnoses:: Major depressive disorder, recurrent, severe, with psychotic features and with catatonia. 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 Diagnosis Code(s):: F 31.5 - Estimated LOS Estimated LOS (in weeks):: 6 Problem/Goal #1 - Problem/Goal #1 Stated Goal:: Client will decrease depressive symptoms, isolation, and psychotic symptoms due to Major Depressive Disorder with psychotic features. Description of Barriers: Client stated prior to her psychiatric admission, client was unaware that she was depressed and stated belief it came out of nowhere. Client demonstrates better insight to her warning signs, triggers, and symptoms of depression and anxiety. However, she still struggles to identify her emotions and mental health needs at times. Additionally, client is not used to counseling and feels uncomfortable at times. Client continues to report difficutly concentrating, difficulty making decisions, and has a hard time verbalizing her emotions. Client and her are estranged from her oldest son due to her oldest son being in a relationship with a man. Client also has high standards for herself which reinforces guilt and anxiety at times. Functional Impact: Client is a 53-year-old female with a history of MDD with psychotic features. Client was admitted to [facility] from 02/15/19-02/27/19 due to worsening depression to the point of catanoia. Client reported improvement since discharge from [facility] and no longer reports catanoia. Client reported becoming non-functional 5 days prior to her psychiatric admission. At this time client was not completing ADLs and stopped speaking. At admission to [facility] client endorsed a depressed mood with anhedonia, inability to focus, lack of energy, isolative behaviors, and lack of motivation. Client participated in [facility] and was transitioned to [facility] level of care as she continued to endorse depressive symptoms and anxiety. 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 Client unable to function socially, occupationally, or familially. Goal Relevant Strengths/Supports: Client has been able to make progress while in [facility] and was able to step down to [facility] level of care. Client presents as a kind and motivated individual who wants to improve her mental health. 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 Client's is engaged in client's treatment. Client identifies her david as a protective factor and support in her life. Client reports willingness to learn about coping skills and ways to manage her symptoms. - Objectives Objective #1 Stated Objective: Client will learn and utilize 2-3 healthy coping strategies to better manage depressive symptoms and reduce DSM-5 symptoms for depression. Interventions: Through group and individual sessions, therapist will help client identify triggers and warning signs of depression and emotional dysregulation including emotional, physical, and behavioral changes. Therapist will teach client various coping skills to manage her symptoms. Therapist will use cognitive restructuring techniques and help client gain awareness of negative thoughts that reinforce depressive cycles. Therapist will help client incorporate mindfulness, opposite action, and goal setting. Discharge Criteria: Client will have met this goal when she can report learning and using at least 2 coping skills to manage depressive symptoms and her DSM-5 scores for depression have decreased. Target Date: 04/18/19 Review Date: 04/07/19 Status: open Objective #2 Stated Objective: Client will identify at least 2-3 negative self-talk messages used to reinforce depressive symptoms and replace thoughts with positive, realistic messages. Interventions: Therapist will help client identify distorted, negative thoughts that reinforce lack of motivation and depressive symptoms and replace with more realistic, affirmative messages. Therapist will use CBT to help client increase insight to the connection between thoughts, emotions, and behaviors. Therapist will encourage client to practice thought challenging. Discharge Criteria: Client will have achieved this goal when can verbalize at least 2 negative self-talk messages and effectively replace those thoughts with affirmative messages. Target Date: 04/18/19 Review Date: 04/07/19 Status: open Problem/Goal #2 - Problem/Goal #2 Stated Goal:: Client will decrease ruminating thoughts which cause anxiety and improve daily functioning. Description of Barriers: Client stated prior to her psychiatric admission, client was unaware that she was depressed and stated belief it came out of nowhere. Client demonstrates better insight to her warning signs, triggers, and symptoms of depression and anxiety. However, she still struggles to identify her emotions and mental health needs at times. Additionally, client is not used to counseling and feels uncomfortable at times. Client continues to report difficutly concentrating, difficulty making decisions, and has a hard time verbalizing her emotions. Client and her are estranged from her oldest son due to her oldest son being in a relationship with a man. Client also has high standards for herself which reinforces guilt and anxiety at times. Functional Impact: Client is a 53-year-old female with a history of MDD with psychotic features. Client was admitted to [facility] from 02/15/19-02/27/19 due to worsening depression to the point of catanoia. Client reported improvement since discharge from [facility] and no longer reports catanoia. Client reported becoming non-functional 5 days prior to her psychiatric admission. At this time client was not completing ADLs and stopped speaking. At admission to [facility] client endorsed a depressed mood with anhedonia, inability to focus, lack of energy, isolative behaviors, and lack of motivation. Client participated in [facility] and was transitioned to [facility] level of care as she continued to endorse depressive symptoms and anxiety. 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 Client unable to function socially, occupationally, or familially. Goal Relevant Strengths/Supports: Client has been able to make progress while in [facility] and was able to step down to [facility] level of care. Client presents as a kind and motivated individual who wants to improve her mental health. 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 Client's is engaged in client's treatment. Client identifies her david as a protective factor and support in her life. Client reports willingness to learn about coping skills and ways to manage her symptoms. - Objectives Objective #1 Stated Objective: Client will identify 2-3 anxiety triggers and 2 coping skills to use when feeling anxious as shown by a reduced DSM-5 score for anxiety. Interventions: Through group and individual sessions client will increase awareness of anxiety triggers. Therapist will teach client various coping strategies to promote emotional regulation and reduction of anxiety. Therapist will discuss the importance of self-care to avoid burnout and reduce stress. Discharge Criteria: Client will have accomplished this goal when can report at least 2 triggers for anxiety and state using 2 coping strategies to manage symptoms. Additionally, client will have accomplished this goal when her DSM-5 scores for anxiety have decreased. Target Date: 04/18/19 Review Date: 04/07/19 Status: open Objective #2 Stated Objective: Client will identify 2-3 cognitive distortions that lead to rumination and learn 2-3 ways to manage these thoughts to better manage anxiety. Interventions: Therapist will provide education on the most common cognitive distortions and teach client the connection between thoughts, emotions, and feelings. Therapist will assist client in identifying, challenging, and replacing dysfunctional thoughts with positive, more realistic thoughts. Therapist will use CBT and DBT techniques to help client gain awareness of thinking errors and learn how to more effectively handle negative thoughts. Discharge Criteria: Client will have accomplished this goal when can identify at least 2 cognitive distortions and at least 2 coping skills to manage negative thoughts. Target Date: 04/18/19 Review Date: 04/07/19 Status: open
--- NOTE | 2019-03-10 09:02 | BH.SGPN.GN ---
Behaviors/Verbalizations/Mental Status: [Eye contact is good. Motor activity is appropriate. Appearance is neat and casual, grooming appropriate. Speech is Appropriate rate and tone. Mood is euthymic, anxious. Affect is congruent. Thoughts are linear and logical. No evidence of psychosis. Reviewed daily check in sheet and pt denies any active SI, plan, or intent as of this date.] Client Response/Progress/Benefit: [Pt receptive of session, more engaged throughout than prior sessions, and open to processing with the group. Pt indicated current emotion as ?excited? and discussed that this is due to looking forward to the holiday season. She went on to express that this is both a stressor and mental health win, as pt reports holiday?s have been overwhelming but that she has reduced her responsibilities this year and is feeling more positive as a result. Pt was receptive of feedback from group and appeared to benefit from supportive environment. Pt identified mental health wins as going for a walk on Sunday and Sunday, as well as encouraging herself to spend time outside of the house at [employer] and a basketball game. Noted beliefs that spending time with supports is improving her mood. Progress noted in pt improved engagement in the group as well as use of self-care strategies. Pt recommended continued IOP tx to prevent decompensation, and promote application of healthy coping skills, and improve mood stability.] Narrative Note: []
--- NOTE | 2019-03-10 10:12 | BH.SGPN.GN ---
Behaviors/Verbalizations/Mental Status: []Client alert and oriented, neatly dressed and groomed. Eye contact good. Motor activity appropriate. Speech within normal limits. Affect constricted, mood anxious. Thoughts linear, logical, no signs of hallucinations or delusions. Client Response/Progress/Benefit: []Client receptive to session, provided input and actively listening throughout discussion on stress. Able to brainstorm with the group the positive and negative aspects of stress on physical and mental health. Client stated one can make a situation better by looking at the positives. Client participated in identifying current stressors impacting mental health. 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 Client reports belief that her stress jar is not full, but it is more than half full. Client stated when her stress becomes too high client will sleep and shut down. Appeared to benefit from gaining awareness of own current stressors and learning about the impact stress has on overall wellbeing. Progress noted as shown by client?s report of reduced isolative behaviors. Recommend continued IOP tx to prevent decompensation of depressive symptoms and to improve ability to regulate emotions. Narrative Note: []
--- NOTE | 2019-03-10 12:56 | PCM.BH.PN_ITS ---
Progress Note Progress Note: History of Present Illness/Interim History: [] Patient is a 53-year-old female who was last seen by me at the [facility] program on March 05, 2019. The patient is being stepdown from [facility] to [facility] as she has improved during her participation in the program. She states that her mood is improving and she feels that she is slowly getting better. She feels less fuzzy now and has a little bit of a easier time doing things around the house and her ADLs. She still feels somewhat anxious due to the stress of the but she is not doing the chores she used to do at the time of the holidays. She feels that she and her have not dealt with their son's homosexuality ever. She says that right now she and her only want to see their son. She denies any suicidal ideations at this point in time. She denies any thoughts that she would not care if she . She is still able to enjoy her grandkids. She is able to help a little bit with holiday preparation but not nearly what she used to do in the past. Her sleep is good still and her eating is improving. She never decreased the Ativan as the option to do this was given to her at last visit. The patient still complains of fatigue and feels overmedicated by the drugs she is on. I discussed with the patient again that we do not want a wean meds too fast when someone has been catatonic and psychotic few weeks ago. Current Psychiatric Medications: [] Risperdal 2 mg p.o. nightly and 1 mg p.o. daily; Zoloft 50 mg p.o. daily; lorazepam 0.5 mg p.o. twice daily; low-dose control pill Mental Status Examination: [] She is a 53-year-old female who appears normal for stated age. She is casually dressed and groomed with good hygiene. She is cooperative during the interview with no psychomotor agitation or retardation. She is more animated than she was when I first saw her at her initial visit. She has good eye contact and her speech is normal rate and rhythm with no pressure. Her mood is depressed and her affect is constricted and consistent with depression. There is no evidence of catatonia. Thought process: Goal-directed and organized. Thought content: No evidence of suicidal or homicidal ideation. No evidence of hallucinations or delusions. She is alert and oriented to person place and time. Judgment is intact. Insight: Some present. Impulsivity: Low. 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 The support, structure, education, individual and group therapy will hopefully prevent worsening of her symptoms. The patient felt safe during the interview and if at any time she does not feel safe she will tell us at the [facility] program or go to the emergency room. The risk, options and possible side effects and complications of the medications were discussed with the patient and she understands and accepts these. I discussed with the patient that she could decrease her morning Ativan dose to 0.25 mg. If at any time her symptoms worsen she should then take the the remaining half of her daily Lorazepam. In addition she will try decreasing her risperidone to 1/2 mg in the morning. Her nighttime risperidone will remain at 2 mg p.o. nightly. This step was taken because it patient still complains of being fatigued. She will continue to not do much during the holiday season. I will see the patient in follow-up in 2 weeks or as needed.
--- NOTE | 2019-03-11 09:05 | BH.SGPN.GN ---
Behaviors/Verbalizations/Mental Status: [] Eye contact is good. Motor activity is appropriate. Appearance is casual. Speech is Appropriate. Mood is anxious. Affect is congruent. Thoughts are linear and logical. No evidence of psychosis. Reviewed daily check in sheet and no reports of suicidal ideations or intent. Client Response/Progress/Benefit: [] Pt participated when prompted. Emotion for today is foggy. Daily symptom tracker notes 2/5 anxiety and 1/5 for panic and agitation. Reports mental shawna wins as going for a walk. Discussed upcoming holiday plans and her strategies to decrease stress. Notes that her family has been supportive and helping with holiday stress stating they have been proving lots of help. Group provided feedback and encouraged pt to live in the present to better enjoy the holiday. Benefited from group support, encouragement, and feedback. Progress noted. Will continue in IOP to prevent decompensation and increase healthy coping skills. Narrative Note: []
--- NOTE | 2019-03-11 10:15 | BH.SGPN.GN ---
Behaviors/Verbalizations/Mental Status: []Client alert and oriented, casually dressed and groomed. Eye contact good. Motor activity appropriate. Speech within normal limits. Affect constricted, mood anxious. Thoughts linear, logical, no signs of hallucinations or delusions. Client Response/Progress/Benefit: []Pt was a passive participant throughout discussion, however appeared to listen attentively to peers. Showed increased engagement during group activity. Appeared to connect with peers of the challenges of utilizing healthy coping skills when struggling. Group noted that coping skills can be healthy and unhealthy. Group worked together to identify unhealthy coping skills which included; substance abuse, avoiding, isolating, lashing out, self-harm, impulsive behavior, risk taking, sex, and eating. Group identified reasons people use unhealthy coping skills to include: seeking control, lack of resources, immediate gratification, past experiences, distractions, habit, easy, self-hate, trauma, and upbringing. Pt seemed to benefit from increased awareness of importance of increasing healthy coping skills and why people fall into trap of utilizing unhealthy coping skills. Pt to continue IOP level of care to improve healthy coping and prevent decompensation. Narrative Note: []
--- NOTE | 2019-03-11 11:15 | BH.SGPN.GN ---
Behaviors/Verbalizations/Mental Status: []Client alert and oriented, neatly dressed and groomed. Eye contact good. Motor activity appropriate. Speech within normal limits. Affect constricted, mood dysthymic. Thoughts linear, logical, no signs of hallucinations or delusions. Client Response/Progress/Benefit: []Client responded well to session, quiet, but taking notes throughout session. Client appeared to connect with the activity from second group and helped the group identify benefits of having a strong foundation of internal and external coping skills. Client helped the group discuss the different categories of coping skills which included distraction, emotional release, grounding, self-love, and thought challenging. Client listened to the examples for each and acknowledged the importance to having a variety of coping skills. Client created a coping skills ?menu? for the five categories of coping skills. Client selected exercise, listening to music, walking in nature, setting boundaries, and practicing reflection. Client appeared to benefit from increasing her repertoire of healthy coping skills. Progress noted in client?s report of reduced depressive symptoms today. Will continue IOP tx to prevent decompensation and increase mood stability. Narrative Note: []
--- NOTE | 2019-03-14 09:00 | BH.SGPN.GN ---
Behaviors/Verbalizations/Mental Status: []Client alert and oriented, neatly dressed and groomed. Eye contact good. Motor activity appropriate. Speech within normal limits. Affect congruent, mood euthymic. Thoughts linear, logical, no signs of hallucinations or delusions. Reviewed client?s symptom tracker, no risk for suicidal ideation, plan, or intent as of 03/14/19 Client Response/Progress/Benefit: []Client responded well to session, attentive and engaged throughout session. Client reports feeling ?happy? today. Client?s affect has visibly improved since her first week in the program and client reports she is starting to feel more like herself. Client stated her mental health wins today include cutting back on one of her medications and enjoying her time with family over [place]. This is a significant win because client had been very worried that her depressive symptoms would ruin the holidays for her. Client shared she was able to feel connected and did not struggle like she worried she would. Appeared to benefit from connecting with peers and reflecting on her progress. Will continue IOP tx to promote mood stability, further decrease depressive symptoms, and increase healthy coping skills. Narrative Note: []
--- NOTE | 2019-03-14 10:15 | BH.SGPN.GN ---
Behaviors/Verbalizations/Mental Status: [Client alert and oriented, neatly dressed and groomed. Eye contact good. Motor activity appropriate. Speech within normal limits. Affect congruent, mood euthymic, anxious. Thoughts linear, logical, no signs of hallucinations or delusions. ] Client Response/Progress/Benefit: [Client was a mostly passive participant AEB providing limited input throughout session; however, did well to take notes and was listening attentively to peers. The group discussed the quote and how the emotion anger is not good or bad, but one can respond to anger in healthy or harmful ways. Client worked with the group to define anger and its causes, as well as the internal and external impacts of anger. Group identified potential consequences of unhealthy management of anger to include: losing relationships, guilt, internalizing emotions, lashing out, and worsening mental health symptoms. Client identified underlying factors of her anger which included: feeling hurt, embarrassed, fear of failure, and high expectations of herself. Client shutting people out or shutting down are common responses she has when feeling angry. Benefited from group by increasing awareness of the negative impacts of unmanaged anger and underlying factors that contribute to her personal anger. Progress noted as client reports increased hope and reduced depression. Will continue IOP tx to further reduce depression and anxiety, promote healthy change behaviors, and improve mood stability.] Narrative Note: []
--- NOTE | 2019-03-14 11:15 | BH.SGPN.GN ---
Behaviors/Verbalizations/Mental Status: []Client alert and oriented, casual dress, hygiene tended to. Eye contact good. Motor activity appropriate. Speech within normal limits. Affect constricted, mood euthymic. Thoughts linear, logical, no signs of hallucinations or delusions. Client Response/Progress/Benefit: []Pt passive participant throughout AEB limited contributions to discussion, however did engage in activity and appeared to listen attentively to others. Pt did well to challenge herself to complete the group activity and incorporate anger management/emotion regulation skills in order to do so. Pt worked with the group to identify the various barriers faced in the activity as well as skills used to successfully complete the task at hand without becoming dysregulated or uncontrollably angry. Group brainstormed with group healthy coping skills to help manage anger which included: listening to music, changing environment, breathing, coloring, walking, exercise, and petting an animal. He appeared to benefit from brainstorming with the group potential strategies to manage anger in healthy ways. Pt identified plans to begin using physical and mental distraction as a means of coping with anger. Recommended continued IOP to maintain gains, continue application of healthy coping, and prevent decompensation. Narrative Note: []
--- NOTE | 2019-03-14 14:19 | BH.MDN_ITS ---
Multi-Disciplinary Note - Note Family Time Started:: 12:20 Date: 03/14/19 Purpose of session/treatment goals addressed:: The purpose of this session was to engage client's in treatment by providing psychoeducation and communicating client's support needs. Another goal was to review communication strategies and coping skills. Other topics included combating stigma. Eye Contact:: Good Motor Activity:: Appropriate Appearance:: Neat Speech:: Soft Mood:: Anxious Affect:: Congruent Thoughts:: Linear, Logical, No evidence of hallucinations/delusions noted Staff Interventions:: Therapist used open-ended questions and active listening to gather information on expectations for the session. Therapist advocated for client by providing psychoeducation on depression , anxiety, and mental health statistics. Client gave client and her a platform to voice their concerns, ask questions, and identify support strategies. Therapist reviewed effective communication, self-advocacy, and coping skills. Therapist helped client and her weigh the pros and cons of telling people about client?s mental health and discussed combating stigma. Therapist gave client and her a handout on ways to help a loved one with depressive. Client Response:: Client and her responded well to session, open to meeting with therapist. Client's shared belief that client has been doing better as she has been more active and like herself. Client stated she cut down on her Risperdal which appears to be helping client's energy levels. Client shared she is starting to feel more like herself as client states f eeling less fatigued which gives client hope. However, client continues to struggle with feeling impatient about progress. Client and her receptive to psychoeducation on depression, mental health, and anxiety. Client's asked questions about how to support client and prevent decompensation. The couple discussed the benefits of decreasing client's stress levels, paying attention to warning signs, and reaching out to support. Client's shared he is hesitant about sharing client's mental health with people outside of their family, but client wants to be honest about her symptoms. The couple was receptive to discussion on combating stigma and weighed the pros and cons of sharing about client's mental health. Discussed ways client can begin to communicate more openly with her daughtes and ways in which client can discuss her mental health without sharing too much. Risks/Concerns:: Client denies any suicidal ideations, plan, or intent as of 03/14/19. Client denies any symptoms of psychosis or catanoia. Progress Toward Goals/Plan:: Client appears to be progressing towards her treatment goals as shown by client's self-report of improved mood and less depressive symptoms. Client's shared client has not been isolating as much and her energy levels have improved. However, client continues to endorse anhedonia, a depressed mood, ruminations, and difficulty concentrating. Will continue IOP level of care to prevent decompensation of symptoms during the holidays, reduce stress, and to promote mood stability. Time Stopped:: 12:57
--- NOTE | 2019-03-17 09:05 | BH.SGPN.GN ---
Behaviors/Verbalizations/Mental Status: [ Eye contact is good. Motor activity is appropriate. Appearance is neat and casual, grooming appropriate. Speech is Appropriate rate and tone. Mood is anxious, euthymic. Affect is congruent, bright. Thoughts are linear and logical. No evidence of psychosis. Reviewed daily check in sheet and pt denies any active SI, plan, or intent as of this date. ] Client Response/Progress/Benefit: [Pt responded well to session, engaged throughout, smiling and making jokes which indicates brighter affect compared to prior sessions. Pt open to processing with the group. Pt indicated current emotion as ?relieved? and discussed that this is due to successfully ?making it through a couple of family [place] parties? without becoming overwhelmed. Pt indicated that she had been able to do so by ensuring to check-in with her supports and remember to take a step back and reflect. Shared asking herself ?what do I need right now??. Pt indicated that she does not have any specific stressors at this time, but would like to focus on maintaining progress. Pt progress noted per self-report of improved mood and ability to cope with daily stressors. Pt recommended continued IOP tx to prevent decompensation, promote ongoing application of healthy coping skills, and further improve emotion regulation.] Narrative Note: []
--- NOTE | 2019-03-17 11:15 | BH.SGPN.GN ---
Behaviors/Verbalizations/Mental Status: []Eye contact is good. Motor activity is appropriate. Appearance is casual. Speech is Appropriate. Mood is anxious. Affect is constricted. Thoughts are linear and logical. No evidence of psychosis. Client Response/Progress/Benefit: []Pt was a passive participant in group as evidenced by pt providing no input during group discussion, however appeared to attentively listen to others. Group worked together to come up with common negative forces in their lives which can hold them back from growth. Negative forces included: toxic relationships, negative thoughts, low motivation, and poor boundaries. Group then worked together to identify common positive forces which help us grow. Theses included: Healthy coping skills, positive support, self-care, positive self-talk and challenging negative thoughts. Pt was attentive during psychoeducation on the importance of utilizing many aspects of positive forces to help one grow. Benefited from group with increased insight and awareness on the impact of negative and positive forces on mental wellness. Pt continue IOP to maintain gains, continue use of healthy skills to reduce stress and prevent decompensation. Narrative Note: []
--- NOTE | 2019-03-17 11:15 | BH.SGPN.GN ---
Behaviors/Verbalizations/Mental Status: []Client alert and oriented, neatly dressed and groomed. Eye contact good. Motor activity appropriate. Speech within normal limits. Affect brighter-smiling and joking, mood euthymic. Thoughts linear, logical, no signs of hallucinations or delusions. Client Response/Progress/Benefit: []Client willing to participate in activity and provided some input during discussion. Client did well to work with the group and actively listen as others provided suggestions/feedback. Client agreed with peers that the group?s attitude toward the activity negatively impacted their ability to succeed. Client shared during the activity people were getting angry, which made them not want to try. Client engaged in discussion reviewing positive and negative forces impacting life and mental wellness. Client identified personal positive forces that aid in progressing toward mental health goals include: family, exercise, friends, taking time for self, and being open-minded. Client indicated personal negative forces to include: having a negative attitude at times, anxiety, outside stressors, and difficulty approaching things differently. Client seemed to benefit from increased awareness of personal positive and negative forces in life and impact they have on mental health and wellness. Client to continue IOP level of care to promote improvement in emotional regulation and reduce intensity of mental health symptoms. Narrative Note: []
--- NOTE | 2019-03-18 09:02 | BH.SGPN.GN ---
Behaviors/Verbalizations/Mental Status: []Client alert and oriented, neatly dressed and groomed. Eye contact good. Motor activity appropriate. Speech within normal limits. Affect congruent, mood euthymic. Thoughts linear, logical, no signs of hallucinations or delusions. Reviewed client?s symptom tracker, no risk for suicidal ideation, plan, or intent as of 03/18/19. Client Response/Progress/Benefit: []Client responded well to session, attentive and engaged throughout session. Client reports feeling ?positive? today. Client shared even though it was stressful, client went out to eat with her family over the weekend. Client stated she was able to manage her stress at dinner and had a good time. Client reported she also feels positive today because she was able to cut back on one of her medications and she did not experience any side effects. Client is hopeful that this change will give client more energy and improve her concentration. Appeared to benefit from reflecting on her positives and connecting with peers. Progress noted as client reports improved mood since admission and has been able to cut back on her medication without worsening symptoms. Will continue IOP tx to promote mood stability and improve daily functioning. Narrative Note: []
--- NOTE | 2019-03-18 11:10 | BH.SGPN.GN ---
Behaviors/Verbalizations/Mental Status: []Client alert and oriented, casually dressed and groomed. Eye contact good. Motor activity appropriate. Speech within normal limits. Affect constricted, mood euthymic. Thoughts linear, logical, no signs of hallucinations or delusions. Client Response/Progress/Benefit: []Client passive participant AEB client not providing input during discussion, however appeared to listen attentively to peers. Client struggled with applying cognitive restructuring to reframe identified fixed thoughts. Client needed assistance with identifying a fixed thought and reframing the thought. Client connected with fixed thought there's no point in trying if I'm going to fail. With help from therapist client reframed fixed thought a growth thought. Client listened as the group brainstormed strategies to promote growth-mindset thinking. Benefitted from discussing benefits of growth mindset and brainstorming strategies for prompting growth-mindset. Will continue IOP tx to continue healthy coping, maintain progress and prevent decompensation. Narrative Note: []
--- NOTE | 2019-03-18 14:06 | BH.MDN ---
Multi-Disciplinary Note - Note 30-min Individual Time Started:: 10:20 Date: 03/18/19 Purpose of session/treatment goals addressed:: The purpose of this session was to address client's current symptoms, stressors, and application of coping skills. Another goal was to complete a self-care assessment and learn habit-stacking. Eye Contact:: Good Motor Activity:: Appropriate Appearance:: Neat Speech:: Soft Mood:: Euthymic, Anxious Affect:: Congruent - improved affect- smiling at times and joking. Thoughts:: Other - thought blocking at times, No evidence of hallucinations/delusions noted Staff Interventions:: Therapist used active listening and open-ended questions to explore client's current stressors, symptoms, and application of coping skills. Therapist gave client a self-assessment on self-care to help client gain awareness of areas she is doing well in and areas she can improve. Therapist processed the assessment with client and helped client set small goals. Therapist taught client about habit-stacking and helped client set a goal to establish a daily routine. Therapist discussed discharge with client and options for aftercare. Client Response:: Client responded well to session, open to meeting with therapist. Client reported she had a good weekend with her family and that she is feeling better. Client cut back on two of her medications and she appears more energetic and present. Observable improvement in affect. Client and therapist discussed client?s work and discharge. Client to bring in [facility] paperwork and plans to follow up at [facility]. Client reported overall her stress levels have decreased. Client receptive to completing a self-assessment on self-care. Client scored highest in the areas of physical self-care and spiritual self-care. Client stated she was surprised that she scored high in physical self-care because ?I felt like I wasn?t doing enough.? Client able to see progress since admission with her ability to take care of her physical needs. Client?s lowest area was in psychological self-care. In response to this client stated, ?that?s kind of scary.? Client and therapist discussed barriers that have prevented client from improving this area. Client stated ?I?ve never really talked about that stuff? but she now see that negative consequences of ignoring this area of self-care. Client stated she would like to work on her psychological self-care by being more receptive to help, letting others know different aspects of client, and practicing self-reflection more often. Client learned about habit stacking and shared she could see the benefit of this. Client reported before she starts habit stacking, client needs to establish a more structured routine. Risks/Concerns:: Client denies any suicidal ideations, plan, or intent as of 03/17/19. Client denies any symptoms of psychosis or catanoia after decreasing her Risperdal and Ativan. Progress Toward Goals/Plan:: Client appears to be progressing towards her treatment goals as shown by client's self-report of improved mood, increase energy, and less depressive symptoms. Client has been able to cut back on two of her medications and does not report any adverse effects or worsening symptoms. Client shared she had a good holiday with her family. Client continues to endorse anhedonia of decreased intensity, ruminations, difficulty making decisions, and difficulty concentrating. Will continue IOP level of care to promote gains, further decrease symptoms, and improve overall functioning. Time Stopped:: 11:03
== END 2019-03-18 23:59 ==
LOC: BHIOP 09:00
PROVIDERS: Family Provider Family Medicine; PCP Family Medicine; Referring Provider Psychiatry & Neurology Psychiatry; Visit Provider Psychiatry & Neurology Psychiatry
DX: F31.5 Bipolar disorder, current episode depressed, severe, with psychotic features (principal); F41.9 Anxiety disorder, unspecified
CPT/HCPCS: H0035; 90832; 90853

== ENCOUNTER 2019-03-20 09:00 | Outpatient (RCR) | payer OTHER, SELFPAY ==
--- NOTE | 2019-03-20 09:03 | BH.SGPN.GN ---
Behaviors/Verbalizations/Mental Status: []Client alert and oriented, casually dressed and groomed. Eye contact good. Motor activity appropriate. Speech within normal limits. Affect congruent, mood euthymic. Thoughts linear, logical, no signs of hallucinations or delusions. Client Response/Progress/Benefit: []Pt was an engaged participant in group discussion. Emotion for today is happy. Pt initially struggled with coming up with mental health wins because nothing big happened. With assistance pt identified talking with her daughter about therapy was helpful in improving connection. Pt stated another mental health positive was spending time engaging in self-care activities yesterday like taking a bath and relaxing. Pt reported she had a stress free past couple of days, which has improved her mood. 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 Pt reported she has a plan in place to manage anxiety in case the repairman is at the house when she is. Progress noted in pt's report of improved mood and increased use of self-care activities. Continued IOP tx recommended to continue application of healthy coping skills, maintain gains, and prevent decompensation. Narrative Note: []
--- NOTE | 2019-03-20 10:05 | BH.SGPN.GN ---
Behaviors/Verbalizations/Mental Status: []Client alert and oriented, neatly dressed and groomed. Eye contact good. Motor activity appropriate. Speech within normal limits. Affect constricted, mood euthymic. Thoughts linear, logical, no signs of hallucinations or delusions. Client Response/Progress/Benefit: []Client was an active participant throughout session, contributing to discussion and attentive. Commented on the quote sharing, ?sometimes we don?t want to start a goal, but we know we need to.? Group worked together to define goals and identify the benefits of developing goals which included: increase confidence, seeing progress, reducing black and white thinking, and sense of purpose. Group also discussed short-term and long-term goals as well as the benefits of the two types. Client agreed with peers that short-term goals are needed in order to achieve goals that require more time and energy. Attentive and contributing during education on developing SMART goals. Benefited from increase awareness of goal-setting methods. Will continue in IOP to continue to improve daily functioning and increase mood stability. Narrative Note: []
--- NOTE | 2019-03-20 11:10 | BH.SGPN.GN ---
Behaviors/Verbalizations/Mental Status: [Client alert and oriented, casually dressed and appropriately groomed. Eye contact good. Motor activity appropriate. Speech within normal limits. Affect congruent, mood anxious and euthymic. Thoughts linear, logical, no signs of hallucinations or delusions.] Client Response/Progress/Benefit: [Pt attentive throughout, contributed some thoughts to discussion which indicates progress. Engaged in creating own mental health SMART goal. Pt identified goal is to increase psychological self-care by engaging with others 3x over the next week. Pt reported this goal as beneficial by improving relationships and decreasing isolation. Pt identified potential barriers to accomplishing goal to include: depression, irritability, or forgetting. Pt reported she will overcome barriers by grounding herself, scheduling time for herself, and writing her goal down to help hold her accountable. Seemed to benefit from identifying a SMART goal and coming up with strategies to overcome potential barriers. Pt to continue IOP to increase healthy coping skills, improve emotional regulation and anxiety management, and prevent decompensation.] Narrative Note: []
--- NOTE | 2019-03-24 09:03 | BH.SGPN.GN ---
Behaviors/Verbalizations/Mental Status: []Client alert and oriented, neatly dressed and groomed. Eye contact good. Motor activity appropriate. Speech soft. Affect congruent, mood euthymic, anxious. Thoughts linear, logical, no signs of hallucinations or delusions. Reviewed client?s symptom tracker, no risk for suicidal ideation, plan, or intent as of 03/24/19 Client Response/Progress/Benefit: []Client responded well to session, attentive and engaged throughout the session. Client reports feeling ?rejuvenated? today. Client reported she had a good weekend as client was social and and engaged in self-care. Client stated she went to a basketball game with her and she was able to cope with her emotions during the game. Client reported she practiced self-care by walking on the treadmill over the weekend. Client shared that she does not have many stressors today, but ?I do actually feel anxious about the new building? referring to the new IOP building. Appeared to benefit from reflecting on her increased use of self-care. Will continue IOP tx to promote gains and further improve stress management strategies. Narrative Note: []
--- NOTE | 2019-03-24 10:17 | BH.SGPN.GN ---
Behaviors/Verbalizations/Mental Status: [Client alert and oriented, neat and casually dressed and groomed. Eye contact fair to good. Motor activity appropriate. Speech within normal limits. Affect congruent, mood anxious and dysthymic. Thoughts linear, logical, no signs of hallucinations or delusions. ] Client Response/Progress/Benefit: [Client a passive participant AEB engagement in group activity but limited willingness to provide input during discussion. Pt taking notes throughout. Client listening as group worked to define resilience and noted agreement with various definitions provided. Client appearing distracted at times by own thoughts, but able to reengage when prompts. Client willing to work with group to discuss benefits of resilience on mental health which included: increased self-confidence, increased ability to face adversity, and increased ability to find different solutions to problems. Progress limited given decreased engagement in group and appearing distracted by own thoughts. She appeared to benefit from psychoeducation and supportive structure of group environment. Recommended continued IOP tx to promote healthy change behaviors, improve insight and mental health sx management, as well as prevent decompensation.] Narrative Note: []
--- NOTE | 2019-03-24 11:18 | BH.SGPN.GN ---
Behaviors/Verbalizations/Mental Status: []Client alert and oriented, casually dressed and groomed. Eye contact fair. Motor activity appropriate. Speech within normal limits. Affect congruent, mood anxious. Thoughts linear, logical, no signs of hallucinations or delusions. Client Response/Progress/Benefit: []Client passive participant as evidenced by client providing limited input throughout discussion and listening attentively to peers. Client worked cooperatively with peers to identify how each resiliency component can help increase personal resiliency. Client reported she wants to work on the resiliency component of taking care of herself. Client stated she will work on taking care of herself by going for a 15 minute walk everyday. Client appeared to benefit from identifying goal to improve personal resilience factors. Client to continue IOP to maintain gains, continue to use healthy coping and prevent decompensation. Narrative Note: []
--- NOTE | 2019-03-26 09:05 | BH.SGPN.GN ---
Behaviors/Verbalizations/Mental Status: []Client alert and oriented, neatly dressed and groomed. Eye contact good. Motor activity appropriate. Speech within normal limits. Affect congruent, mood euthymic. Thoughts linear, logical, no signs of hallucinations or delusions. Reviewed client?s symptom tracker, no risk for suicidal ideation, plan, or intent as of 03/26/19 Client Response/Progress/Benefit: []Client responded well to session, quiet, but participating when prompted. Client reports feeling content today. Client is usually brief during her check-ins and does not elaborate on her mental health wins and stressors. 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 Client has not been able to be very independent since her hospital admission, so this is good progress for client. Client's stressor today is her worry about the snow and driving. Recognizes that she can do things to reduce her anxiety while driving including deep breathing. Appeared to benefit from connecting with peers. Will continue IOP tx to promote mood stability, further decrease anxiety, and improve daily functioning. Narrative Note: []
--- NOTE | 2019-03-26 14:31 | BH.MDN_ITS ---
Multi-Disciplinary Note - Note 30-min Individual Time Started:: 10:53 Date: 03/26/19 Purpose of session/treatment goals addressed:: The purpose of this session was to address client's current symptoms, stressors, and application of coping skills. Another goal was to discuss medication, work, and plan for discharge. Eye Contact:: Good Motor Activity:: Appropriate Appearance:: Neat Speech:: Appropriate Mood:: Euthymic, Anxious Affect:: Congruent Thoughts:: Linear, Logical, No evidence of hallucinations/delusions noted Staff Interventions:: Therapist used active listening and open-ended questions to explore client's current stressors, symptoms, and application of coping skills. Therapist reviewed client?s homework and discussed with client ways to improve client?s self-awareness to promote maintenance. Therapist discussed discharge with client and options for aftercare. Therapist reviewed ways to promote stability which included journaling, daily check-ins, and strategies to promote self-care. Client Response:: Client responded well to session, open to meeting with therapist. Client shared she has been doing better on a more consistent basis. Client has been able to be more social without feeling as overwhelmed and she has been practicing self-care. Client reported she plans to ask the psychiatrist today if she can cut back on another one of her medications. Client stated she was told she would not be able to return to driving if she was still on Ativan. 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 Client stated she has thought about other options including babysitting. Client was encouraged to talk with her about her options and look at what would most benefit client's mental health. Client and therapist discussed ways to promote maintenance and mood stability. Client has been consistently applying self-care activities into her daily schedule. Client receptive to practicing daily check-ins with herself which would include client reflecting on her sleep habits, eating, exercise, stress levels, and connection with others. Client and therapist discussed discharge and client plans to cut back on the days she comes to group to prepare. Risks/Concerns:: Client denies any suicidal ideations, plan, or intent as of 03/26/19. Progress Toward Goals/Plan:: Client appears to be progressing towards her treatment goals as shown by client's self-report of improved mood, increased energy, and less depressive symptoms. Client reports since reducing her medications she has been more alert and socially connected. Client has been practicing self-care more consistently which has helped client manage anxiety. Client continues to endorse some anxiety and depressive symptoms and can benefit from ongoing IOP level of care. Will continue IOP level of care to promote gains, reduce negative thinking, and improve overall functioning. Time Stopped:: 11:20
--- NOTE | 2019-03-28 09:05 | BH.SGPN.GN ---
Behaviors/Verbalizations/Mental Status: [] Eye contact is good. Motor activity is appropriate. Appearance is casual. Speech is Appropriate. Mood is depressed. Affect is flat. Thoughts are linear and logical. No evidence of psychosis. Reviewed daily check in sheet and no reports of suicidal ideations or intent. Client Response/Progress/Benefit: [] Pt participated when prompted. Emotion for today is content. 03/23 for anxiety on daily symptom tracker. Believes that she is continuing to improve and her energy is increasing as well. Shared that psychiatrist has been weaning her off some medications which has improved her energy. She has some upcoming holiday get-togethers this weekend. Increased energy. More alert and engaged. Progress noted per pt report. Benefited from group support, encouragement, and feedback. Will continue in IOP to prevent decompensation and improve daily functioning. Narrative Note: []
--- NOTE | 2019-03-28 10:05 | BH.SGPN.GN ---
Behaviors/Verbalizations/Mental Status: []Client alert and oriented, neatly dressed and groomed. Eye contact good. Motor activity appropriate. Speech within normal limits. Affect constricted, mood euthymic. Thoughts linear, logical, no signs of hallucinations or delusions. Client Response/Progress/Benefit: []Client active participant as shown by client?s attentiveness and note-taking. Client agreed with peers that self-care is important as it promotes balance and prevents burnout. Client helped the group discuss benefits of self-care. Benefits included; improved relationships, more patience, less stress, more tolerance for stressors, and increased self-worth. Client participated in her small group discussion of the common myths about self-care including self-care is selfish, always fun, too much effort and time, and not worth it. Client participated in the discussion and debunking of these myths. Client shared self-care does not have to be expensive or time consuming, it can be something free that one can do at home. Client seemed to benefit from increased awareness of the importance of self-care and challenging common myths that prevent clients from practicing self-care. Progress noted as client reports improve energy and reduced depressive symptoms. Will continue IOP tx to promote gains, increase mood stability, and further improve daily functioning. Narrative Note: []
--- NOTE | 2019-03-31 09:36 | BH.MDN ---
Multi-Disciplinary Note - Note 30-min Individual Time Started:: 09:40 Date: 03/31/19 Purpose of session/treatment goals addressed:: The purpose of this session was to address client's current symptoms, stressors, and application of coping skills. Another goal was to discuss self-care and maintaining stability. Other topics included; stigma and the impacts of being introverted. Eye Contact:: Good Motor Activity:: Appropriate Appearance:: Neat Speech:: Appropriate Mood:: Euthymic Affect:: Constricted Thoughts:: Linear, Logical, No evidence of hallucinations/delusions noted Staff Interventions:: Therapist used active listening and open-ended questions to explore client's current stressors, symptoms, and application of coping skills. Therapist processed client?s stressors with client and provided psychoeducation to normalize client?s experience. Therapist discussed the characteristics of introverts and how to promote balance of self-care and being social. Therapist reviewed maintenance strategies. Therapist helped client combat stigma and negative thinking patterns. Client Response:: Client responded well to session, open to meeting with therapist. Client has been able to be more social without feeling as overwhelmed and she has been practicing self-care. Client stated she went to dinner with friends, went to a libertarian, and went to tenriism this weekend. Client began disqualifying her positives and shared but I didn't do much of anything on Sunday. Client has felt guilty in the past if she is not highly active all weekend. Client receptive to challenging her perspective to combat guilt. Client able to recognize that because she is more of an introverted person, it is mentally and emotionally beneficial for client to recharge her battery after social events. Client receptive to ongoing thought challenging to help client combat guilt and thoughts that client is not doing enough. Client shared she feels confident about cutting back on her days in IOP. Client was also able to cut back on her medications again which client feels good about. Client stated over the weekend a friend asked about client's mental health, but client did not share very much with her friend. Client reported she still feels uncomfortable about talking about her mental health, but she has made good steps. Client receptive to continuing to practice self-care and willing to communicate more openly with her friends to combat stigma. Risks/Concerns:: Client denies any suicidal ideations, plan, or intent as of 03/31/19. Progress Toward Goals/Plan:: Client appears to be progressing towards her treatment goals as shown by client's self-report of improved mood, decreased depression, and report of consistently being social. Client has been able to be social for three weekends in a row without experiencing exacerbation of symptoms. Client has been practicing self-care more consistently which has helped client manage anxiety. Client continues to endorse some anxiety and depressive symptoms and can benefit from ongoing IOP level of care. Will continue IOP level of care to promote gains, reduce negative thinking and perceived stigma, and improve overall functioning. Time Stopped:: 10:00
--- NOTE | 2019-03-31 10:20 | BH.SGPN.GN ---
Behaviors/Verbalizations/Mental Status: []Eye contact is good. Motor activity is appropriate. Appearance is casual. Speech is Appropriate. Mood is euthymic. Affect is constricted. Thoughts are linear and logical. No evidence of psychosis. Client Response/Progress/Benefit: []Client was an active participant in group discussion and activity, participating in activity and taking notes during discussion. Worked with peers to identify and define pitfalls in mental health. Group identified several definitions which included; engaging in choices that keep us stuck, unexpected dangers, and unforeseen difficulty. The group discussed the consequences of continuing to fall into pitfalls or not address pitfalls which included; hospitalization, increased mental health symptoms, and loss of employment or relationships. Attentive on psycho-education on the impact of how one patricia with or manages pitfalls in regards to mental health. Group worked together to identify what keeps us stuck or vulnerable to pitfalls which included; lack of resources, stigma, feeling uncomfortable, it is hard to go against the norm, and difficulty seeing the big picture. Benefited from increased awareness on the impact that pitfalls can have on mental health. Progress noted as client?s mood continues to improve on a weekly basis. Will continue IOP tx to promote gains and further improve daily functioning. Narrative Note: []
--- NOTE | 2019-03-31 11:21 | BH.SGPN.GN ---
Behaviors/Verbalizations/Mental Status: [Client alert and oriented, casually dressed and groomed. Eye contact fair to good. Motor activity appropriate. Speech within normal limits. Affect congruent, mood anxious, euthymic. Thoughts linear, logical, no signs of hallucinations or delusions.] Client Response/Progress/Benefit: []Client receptive of session, engaged throughout AEB client nodding and actively listening during discussion and taking notes. Listened and processed activity with group and connected it to overcoming personal pitfalls in life. Client completed a worksheet where she identified personal pitfalls impacting mental health progress. Able to ask for assistance when initially struggling to identify personal pitfalls. Identified pitfalls as: lack of communication or not knowing what to say, and lack of awareness. Client agreed that with awareness and use of healthy coping skills, it is possible to prevent or better manage pitfalls. Attentive during psychoeducation on strategies to overcome pitfalls. Client stated she will work on pitfall of lack of awareness by beginning to track wins to increase ability to identify them. Benefited from identifying personal pitfalls and strategies to overcome these pitfalls, as well as support provided by group. Progress noted as client reported improved insight and ability to challenge negative thoughts. Will continue IOP tx to maintain gains, improve emotion regulation, and prevent decompensation. Narrative Note: []
--- NOTE | 2019-04-04 09:05 | BH.SGPN.GN ---
Behaviors/Verbalizations/Mental Status: []Client alert and oriented, neatly dressed and groomed. Eye contact good. Motor activity appropriate. Speech within normal limits- soft. Affect constricted, mood euthymic. Thoughts linear, logical, no signs of hallucinations or delusions. Reviewed client?s symptom tracker, no risk for suicidal ideation, plan, or intent as of 04/04/19 Client Response/Progress/Benefit: []Client responded well to session, quiet, but participating when prompted. Client reports feeling content today. Client shared she was able to cut back on her anxiety medications again which made client feel happy and more like herself. 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 Client is still unsure about returning to work and reported she has thought about retiring early. Client has not talked about work or these options yet with her , and she was encouraged to do so as it could help client reduce anxiety by having a plan. Client's stressor today is that the forecast is predicting snow. Appeared to benefit from reflecting on her medication reduction, but client continues to struggle with limited insight to her mental health and stressors. Will continue IOP tx to further improve daily functioning and increase healthy communication with supports. Narrative Note: []
--- NOTE | 2019-04-04 11:15 | BH.SGPN.GN ---
Behaviors/Verbalizations/Mental Status: []Client alert and oriented, casual in appearance. Eye contact fair. Motor activity appropriate. Speech within normal limits. Affect constricted, mood dysthymic. Thoughts linear, logical, no signs of hallucinations or delusions. Client Response/Progress/Benefit: []Client was a passive participant in group discussion and activity. Client unable to identify barriers that are preventing client from achieving client?s desired reality. With coaching client stated could Client was able to identify that she is not going with her first thought as a way to help herself move towards desired reality. Active during activity and providing ideas on how to cope with internal barriers. Client along with peers identified various obstacles during the activity and developed strategies to overcome those obstacles to wellness and desired reality. Client selected wanting to work on the barrier of not consistently engaging in self-care by scheduling time each day for self-care activities. Benefited from group by identifying obstacles and solutions to desired reality. Will continue IOP tx to further combat distortions, successfully transition back into new job, and prevent decompensation. Narrative Note: []
--- NOTE | 2019-04-07 09:08 | BH.SGPN.GN ---
Behaviors/Verbalizations/Mental Status: [] Pt eye contact good, casually dressed, motor activity appropriate, speech normal rate and tone, mood depressed, constricted affect, tearful, thoughts linear and intact, no evidence of delusions or hallucinations. Client Response/Progress/Benefit: []Patient receptive to session as evidenced by patient listening to others and openly sharing thoughts and feelings. Patient reported she struggles with identifying a mental health positive because the tasks she accomplished over the weekend are things that she is always been able to do like do her laundry and pay her bills. Patient stated she is currently struggling with feeling like she has plateaued. Patient stated while she is around her family she does not feel connected or really any emotion. Client shared she feels like she is just going through the motions. Patient stated her had asked her do not feel emotion and her daughter recognized patient is not as engaged in family gatherings. Patient stated she is feeling frustrated that she does not feel engage in present with others. Progress decompensating as evidenced by patient reporting not feeling connected with others and reporting a decline in progress. Patient to continue IOP level of care to increase healthy coping, increase connection with supports and prevent decompensation. Narrative Note: []
--- NOTE | 2019-04-07 10:10 | BH.SGPN.GN ---
Behaviors/Verbalizations/Mental Status: []Client alert and oriented, casually dressed and groomed. Eye contact good. Motor activity appropriate. Speech within normal limits. Affect flat, mood depressed. Thoughts linear, logical, no signs of hallucinations or delusions. Client Response/Progress/Benefit: []Client responded well to session, quiet, but taking notes. Group identified the benefits to setting boundaries as well as the consequences of not setting healthy boundaries. Client nodded that setting boundaries is hard for her. Listened to the discussion of benefits of setting boundaries which included; increased confidence, better relationships, clear expectations, less stress, and less negativity. Group identified the barriers that keep one from setting healthy boundaries which included fear of hurting others, people pleasing, anxiety, issues with trust, and negative thinking. Client listened during discussion of the different types of boundaries and able to identify the benefits of each. Client seemed to benefit from increased awareness of how poor boundaries can negatively impact mental health. Progress noted as client has been more social. However, client reports a regression of symptoms today and feels overwhelmed. Will continue IOP tx to prevent decompensation and promote the use of healthy stress management skills. Narrative Note: []
--- NOTE | 2019-04-07 11:12 | BH.SGPN.GN ---
Behaviors/Verbalizations/Mental Status: [Client alert and oriented, casual dress, hygiene appropriate. Eye contact fair to good. Motor activity appropriate. Speech soft, limited input. Affect constricted, mood anxious. Thoughts linear, logical, no signs of hallucinations or delusions. ] Client Response/Progress/Benefit: []Pt responded well to session, though remaining a passive participant throughout. Pt did well to challenge herself to engage in the boundary self-assessment activity and worked with group to further process. Pt discussed that she often struggles with opening up to others about her emotions and mental health. Noted that she has been working to improve in this area and challenge herself to ?push through the uncomfortable in order to better trust others?. Identified she falls into the category of porous boundaries when it comes to doing things for others and struggles to say no. Appeared to benefit from group discussion on strategies for further improving personal boundaries. Progress noted in pt ability to identify impact of current boundaries on mental health progress and relationships, as well as increased engagement in session. Pt to continue IOP tx to maintain stability, decrease mental health sx severity, and continue to promote healthy change behaviors. Narrative Note: []
--- NOTE | 2019-04-07 14:09 | BH.MDN ---
Multi-Disciplinary Note - Note 30-min Individual Time Started:: 12:15 Date: 04/07/19 Purpose of session/treatment goals addressed:: The purpose of this session was to address current symptoms, stressors, fears about returning to work. Another goal was discuss stress and stress management strategies. Other topics included supports and communication. Eye Contact:: Good Motor Activity:: Slowed Appearance:: Neat Speech:: Soft Mood:: Depressed Affect:: Flat - tearful Thoughts:: Racing - client reports racing thougths and shared I can't think straight., No evidence of hallucinations/delusions noted Staff Interventions:: Therapist used active listening and open-ended questions to explore client's current symptoms, stressors, and worries. Therapist explored triggers for client's current regression in depressive and anxiety symptoms. Therapist helped client increased awareness of how upcoming stressors and changes could be impacting client's mood. Therapist encouraged client to reach out to supports and discussed the pros and cons of communicating her worries with supports. Client Response:: Client responded well to session, open to meeting with therapist. Client shared she has been feeling withdrawn, not connected, and low today. Client stated this started a few days ago and reported my told me it's like I don't have emotions. Client shared in first group today it's like I'm just existing. Client unable to identify a trigger for her regression in symptoms, but after further discussion, client recognized she is feeling stressed because of a lot of upcoming changes. Client has an appointment at [facility] next week for outpatient counseling, client will be discharging from [facility] soon, and client is to return to work in the next few weeks. Client shared she still has not decided what she wants to do for work and reports belief I don't think I'm ready. Client has not talked to her boss or any of her co-workers since client took time off work for her mental health. Client was receptive to the discussion of the benefits of talking with one of her work friends. Client plans to reach out to this friend today and ask for advice, support, and let the friend know what is going on with client's mental health. Client was also encouraged to talk with her about client's job and options. Client willing to exercise today and do something she enjoys tonight. Risks/Concerns:: Client denies any suicidal ideations, plan, or intent as of 04/07/19. Progress Toward Goals/Plan:: Client had been demonstrating progress towards her treatment goals, but she recently reports a regression in depressive symptoms and increased stress. Client had been socializing consistently and had been reporting feeling more connected. However, today client reports feeling withdrawn and disconnected. Client shared her stated, ?it?s like you don?t have any emotions.? After discussing triggers with therapist, client able to recognize her recent regression is due to stress about numerous upcoming changes. Client Will continue IOP level of care to promote use of healthy coping skills, prevent further decompensation this week, and improve daily functioning. Time Stopped:: 12:45
--- NOTE | 2019-04-09 09:00 | BH.SGPN.GN ---
Behaviors/Verbalizations/Mental Status: []Eye contact is good. Motor activity is appropriate. Appearance is casual, grooming appropriate. Speech is quiet. Mood is euthymic. Affect is constricted. Thoughts are linear and logical. No evidence of psychosis. Reviewed daily check in sheet and pt denies any active SI, plan, or intent as of this date. Client Response/Progress/Benefit: []Client responded well to session, quiet, but attentive. Client reports feeling content today. Client stated she does not have any stressors today, despite previous reports of feeling overwhelmed about returning to work recently. Client reported this week she met up with a friend from work and this reduced some of client's anxiety. Client was also social by going to a basketball game on Sunday this week. Client has been able to be more consistently social and overall reports less isolation and depressive symptoms. Appeared to benefit from reflecting on her increased socialization. Client continues to struggle with minimizing her symptoms, but she is gaining awareness of this. Will continue IOP tx to reinforce healthy coping skills, further improve daily functioning, and improve self-talk. Narrative Note: []
--- NOTE | 2019-04-09 10:14 | BH.SGPN.GN ---
Behaviors/Verbalizations/Mental Status: []Client alert and oriented, casually dressed and appropriately groomed. Eye contact good. Motor activity appropriate. Speech within normal limits. Affect flat, mood dysthymic. Thoughts linear, logical, no signs of hallucinations or delusions. Client Response/Progress/Benefit: []Client passive participant AEB pt not providing input to discussion, but did appear to connect with peers comments. Client connected with discussion on impact anxiety can have on behavior. Client gained awareness of personal physical symptoms of anxiety. Client appeared to struggle with identifying physical symptoms she experiences when anxious. Client did not share what physical symptoms she personally experiences when anxious. Client appeared to connect with avoidance as a safety behaviors he has engaged in that provide short term relief but increase anxiety over time. Client appeared to benefit from gaining insight to safety behaviors and how anxiety manifests itself, as well as harmful impact of safety behaviors on mental health. Will continue IOP to prevent decompensation of symptoms and increase self-awareness. Narrative Note: []
--- NOTE | 2019-04-14 09:05 | BH.SGPN.GN ---
Behaviors/Verbalizations/Mental Status: [] Eye contact is good. Motor activity is appropriate. Appearance is casual. Speech is Appropriate. Mood is depressed. Affect is flat. Thoughts are linear and logical. No evidence of psychosis. Reviewed daily check in sheet and no reports of suicidal ideations or intent. Client Response/Progress/Benefit: [] Pt spoke when prompted. Attentive. Emotion for today is hopeful. Daily symptom tracker notes 2/5 for anxiety and hopelessness. Superficial check-in. Notes feeling bored which resulted in engaging in several social activities over the weekend. Feels that her energy is baseline. Had several get-togethers with friends and family as well as went to a motorcycle show. Stress due to meeting with new psychiatrist tomorrow. Does not know what to expect. Group provided support, encouragement, and feedback. Progress noted. Will continue in IOP to prevent decompensation. Narrative Note: []
--- NOTE | 2019-04-14 10:05 | BH.SGPN.GN ---
Behaviors/Verbalizations/Mental Status: []Client alert and oriented, casually dressed and groomed. Eye contact fair. Motor activity appropriate. Speech within normal limits. Affect flat, mood anxious. Thoughts linear, logical, no signs of hallucinations or delusions. Client Response/Progress/Benefit: []Pt was a passive participant throughout group session AEB pt not providing input during discussion however appeared to listen attentively to peers. Group noted that coping skills can be healthy and unhealthy. Group worked together to identify unhealthy coping skills which included: taking on others problems, putting problems on someone else, avoidance, sleep, deflecting feelings, isolation, and self-sabotage. Group worked together to identify potential consequences of using unhealthy coping which included: problems getting worse, harming others because of choices, suicidal ideation, and decreased self-esteem. Pt took notes throughout session, but did not contribute her thoughts to discussion. Pt seemed to benefit from increased awareness of importance of increasing healthy coping skills and consequences of utilizing unhealthy coping skills. During activity pt passive, providing input if elicited by therapist or peers. Pt to continue IOP level of care to continue use of healthy coping skills and prevent decompensation. Narrative Note: []
--- NOTE | 2019-04-14 11:11 | BH.SGPN.GN ---
Behaviors/Verbalizations/Mental Status: [] Client alert and oriented, casually dressed and groomed. Eye contact good. Motor activity appropriate. Speech within normal limits. Affect constricted, mood anxious and dysthymic. Thoughts linear, logical, no signs of hallucinations or delusions. Client Response/Progress/Benefit: []Client responded well to session, quiet, but taking notes throughout session. Client continues to struggle with engaging in group sessions. Client appeared to connect with the activity from second group and listened as the group worked to identify benefits of having a strong foundation of internal and external coping skills. Client again taking notes as the group discussed the different categories of coping skills which included distraction, emotional release, grounding, self-love, and thought challenging. Client listened to the examples for each and acknowledged the importance to having a variety of coping skills. Client created a coping skills ?menu? for the five categories of coping skills. Client identified wanting to improve in the area of self-love by reaching out more to supports. Client appeared to benefit from increasing her repertoire of healthy coping skills. Client reports improved mood however continues to struggle in engaging in tx process which may impact overall progress levels. Will continue IOP tx to prevent decompensation, maintain safety, and increase mood stability. Narrative Note: []
--- NOTE | 2019-04-16 09:05 | BH.SGPN.GN ---
Behaviors/Verbalizations/Mental Status: []Eye contact is good. Motor activity is appropriate. Appearance is neat and casual. Speech is WNL. Mood is euthymic, anxious. Affect is constricted. Thoughts are linear and logical. No evidence of psychosis. Reviewed daily check in sheet and no reports of suicidal ideations or intent. Client Response/Progress/Benefit: []Pt participated during group discussion and attentive as others shared throughout. Emotion for today is ?optimistic? and pt attributed this to having a positive experience with her new psychiatrist on previous date. Described this as a current mental health wins and indicated using opposite action and bringing a support with her in order to decrease anxiety about meeting a new provider. Additional win described as talking to her daughter who was struggling with anxious thoughts and pt expressed that it made her feel good to be able to provide the emotional support. Stressor reported as the recent of pt?s [id number]. Shared she is planning to take a hot bath tonight to practice some self-care. Progress noted in pt self-report of reduced depression and anxiety, however continues to indicate anxiety regarding return to work. Benefited from group support. Will continue in IOP to maintain gains, prevent decompensation, and increase healthy coping. Narrative Note: []
--- NOTE | 2019-04-16 10:08 | BH.SGPN.GN ---
Behaviors/Verbalizations/Mental Status: []Client alert and oriented, neatly dressed and groomed. Eye contact good. Motor activity appropriate. Speech within normal limits. Affect flat, mood euthymic. Thoughts linear, logical, no signs of hallucinations or delusions Client Response/Progress/Benefit: []Client responded well to session, taking notes and listening to discussion. Client connected with the group topic of crisis. Client identified examples of potential crisis to include loss of a loved one, relationship problems, and disasters. Client nodded in agreement that anything could become a crisis depending on how many stressors a person has. Connected with discussion on how coping with external crisis by using unhealthy coping skills could lead to personal crisis. Group identified unhealthy coping skills to include; using substances, sleep, pushing away supports, and avoiding responsibilities. Group identified warning signs for crisis which included; negative thoughts, crying uncontrollably, numbing, lack of motivation, and increased agitation. Client completed the personal warning signs worksheet and identified crisis warning signs to include; difficulty concentrating, uncontrollable worries, loss of interest, apathy, and lack of motivation. Benefited from group by increasing awareness of crisis and personal warning signs. Client has made significant progress as shown by her reduced DSM-5 symptoms and self-report of an improved mood. Will discharge from [facility] tx today. Narrative Note: []
--- NOTE | 2019-04-16 11:10 | BH.SGPN.GN ---
Behaviors/Verbalizations/Mental Status: []Pt eye contact good, casually dressed, motor activity appropriate, speech normal rate and tone, mood euthymic, congruent affect, thoughts linear and intact, no evidence of delusions or hallucinations. Client Response/Progress/Benefit: []Client passive participant as evidenced by client not providing input throughout session, but listened attentively to others. Client identified her warning signs for crisis and gained further awareness of earliest warning signs. Client appeared to connect that awareness of these warning signs can prevent further crisis and help client utilize healthy coping skills to break the cycle. Client created a crisis action plan to help client better manage warning signs for crisis. Client?s plan included: grounding, calming skills, opposite action, daily affirmations, and healthy distractions. Client selected tangible items for crisis survival kit that will help her remember these crisis interventions. Client appeared to benefit from creating a crisis action plan and increasing self-awareness. Client reports significant progress since starting IOP and will discharge from IOP today. Narrative Note: []
--- NOTE | 2019-04-16 11:19 | BH.AFTERPLAN ---
Aftercare Plan - Demographics Treatment End Date:: 04/16/19 Psychiatrist:: Kylie Obrien Psychiatrist Office #:: [phone] [facility] Therapist:: Kimberly Karimi Therapist Phone #:: [phone] - Medications Home Medications: Home Medications Norethindrone-E.estradiol-Iron [Blisovi Fe 1-20 Tablet] 1 tab PO DAILY 02/14/19 Risperidone [Risperdal] 2 mg PO QHS 03/05/19 Sertraline HCl [Zoloft] 100 mg PO DAILY 30 Days #30 tab 04/09/19 - Plan Details Progress/Aftercare Plan Details:: Delmy has shown great strides since starting IOP and is leaving the program today with more hope. When Delmy started IOP she was tearful, quiet, depressed, and anxious. Delmy also struggled with fatigue, loss of motivation, and little interest in doing things. Now, Delmy is social, jokes with others, and can enjoy time with family and friends. Delmy has taken on more tasks at home and can open up more to her family and friends. Delmy is more active as she has been regularly exercising. Delmy has increased awareness of warning signs, healthy coping skills, and triggers. Delmy also can identify the benefits of self-care, communication, and boundary setting. Delmy has significantly decreased the amount of medications she takes to manage her symptoms and reports feeling more like herself. Delmy was encouraged to follow up with [facility] for mental health counseling and psychiatry. At this time, Delmy does not want to engage in counseling, but she is receptive to psychiatry. Delmy saw Dr. Page this week at [facility], and she will follow up with him again in 3 weeks. Strategies for Success:: 1. Awareness! Continue to practice self-awareness of warning signs, symptoms, triggers, and stressors. 2. LASHAUN- Accomplish, Closeness, Enjoyment. 3. Communicate with family and friends. 4. Take care of stressors one step at a time. 5. Boundaries! It is okay to not take on as much to help you feel more balanced. 6. Self-care! Don't forget to make time for you. 7. Continue to find that balance between being social and needing time for yourself. 8. Challenge negative thoughts that tell you, you aren't doing enough and remember everyone deserves a break sometimes. 9. Break the stigma and remember it is okay to talk about stress and mental health. 10. Maintenance! Keep up with appointments, medication, self-care, and addressing your needs. - Appointments Appointments/Referrals to Other Services:: 1. Follow up with Dr. Page at [facility] in 3 weeks. 2. Encouraged to call and schedule outpatient therapy at [facility] should you change your mind.
--- NOTE | 2019-04-16 13:38 | BH.COMM ---
Communication Note - Communication with Client Communication Note: This therapist met with client to give client her aftercare plan, recommendations post IOP discharge, and IOP surveys. Therapist also gave client a quote collage for closure.
--- NOTE | 2019-04-16 14:05 | BH.DS ---
Discharge Summary - Demographics Date of Admission:: 03/07/20 Discharge Date: 04/16/19 Presenting Problems at Admission:: Client is a 53-year-old female with a history of MDD with psychotic features. Prior to admission to [facility] and [facility] at [facility], client was admitted to [facility] from 02/15/19-02/27/19 due to worsening depression to the point of catatonia. Client reported improvement since discharge from [facility] and no longer reported catatonia at time of admission to [facility]. Client reported becoming non-functional 5 days prior to her psychiatric admission. At this time client was not completing ADLs and stopped speaking. At admission to [facility] client endorsed a depressed mood with anhedonia, inability to focus, lack of energy, isolative behaviors, and lack of motivation. Client also reported ruminative anxiety and avoidance behaviors. 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 Client was unable to function socially, occupationally, or familially. Discharge Diagnoses:: Major depressive disorder, recurrent, severe, with psychotic features and with catatonia. 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 Reason for Discharge:: Client has made significant progress towards her treatment goals as evidenced by her reduced DSM-5 symptoms, improved mood, increased ability to function. Client no longer meets criteria for [facility] level of care. - Treatment Progress During Treatment & Response: Client responded well to [facility] treatment as she was consistent with attendance and was attentive during sessions. Client was passive during group sessions, but she took notes and was able to connect with some of her peers. Client was mostly consistent with completing homework, did she report sometimes not completing homework because ?I didn?t get into it.? Client was consistent with engaging socially at home and exercising. Client was receptive to learning new skills and increasing self-awareness. Client brought in her while in [facility] which helped her support gain awareness of how to better help client and reduce stigma. Client self-reports reduced anxiety, decreased depression, and less isolation. Client?s DSM-5 scores for depression and anxiety have decreased since admission and her overall score decreased by 57%. Client?s scores for depression decreased from 6/8 at admission to 4/8 at discharge. Client?s scores for anxiety decreased from 10/12 at admission to 4/12 at discharge. Issues Still to be Addressed:: Client has made strides towards progress during her time in IOP, but she can continue to increase healthy coping skills to manage depression, anxiety, and negative thinking. Client has learned a lot about her mental health, but she continues to struggle with identifying warning signs, being vulnerable, and verbalizing her emotions. Client can benefit from ongoing work on increasing self-awareness, combating stigma, and combating distortions that reinforce anxiety and depression. There is a concern post IOP discharge that client will struggle with stability as she has declined outpatient counseling at this time. Discharge Recommendations/Instructions:: Client was recommended to continue receiving psychiatric treatment and medication management at [facility]. Client had her initial appointment with Dr. Page yesterday 04/15/19. Client sees Dr. Page again in three weeks. Client was encouraged to establish outpatient counseling at [facility], but client declined at this time. Client reported belief she does not need ongoing counseling at this time. This therapist provided client with information on how to establish outpatient counseling should she change her mind. Discharge Handout: Complete Discharge Handout with client on aftercare options and continuity of care.
== END 2019-04-18 23:59 ==
LOC: BHIOP 09:00
PROVIDERS: Family Provider Family Medicine; PCP Family Medicine; Referring Provider Psychiatry & Neurology Psychiatry; Visit Provider Psychiatry & Neurology Psychiatry
DX: F31.5 Bipolar disorder, current episode depressed, severe, with psychotic features (principal); F41.8 Other specified anxiety disorders
CPT/HCPCS: H0035; 90832; 90853

== ENCOUNTER → 2021-01-31 09:36 | Outpatient (CLI) | payer OTHER, SELFPAY ==
--- NOTE | 2021-01-31 09:49 | EKG12_ITS ---
Test Reason : PRE-OP Blood Pressure : / mmHG Vent. Rate : 075 BPM Atrial Rate : 075 BPM P-R Int : 176 ms QRS Dur : 118 ms QT Int : 406 ms P-R-T Axes : 026 104 008 degrees QTc Int : 453 ms Normal sinus rhythm Low voltage QRS Right bundle branch block Abnormal ECG Confirmed by NIA BEDOLLA, RADHA ([id number]), online content editor JUNIE BENEDICT ([id number]) on 01/31/2021 1:23:25 PM Referred By: Pop Hammer Confirmed By:RADHA KRAMER MD
[2021-01-31 10:39] LABS: Hematocrit 42.1 % (37-47); Hemoglobin 13.9 g/dL (12.0-15.0); Mean Corpuscular Hgb 29.1 pg (27.0-32.0); Mean Corpuscular Volume 88.3 fL (81-99); Mean Platelet Vol. 9.6 fl (6.2-12.0); Platelet Count 252 K/mm3 (150-450); RBC Distribution Width CV 12.9 % (11.6-14.6); RBC Distribution Width SD 41.8 fl (35.1-43.9); Red Blood Count 4.77 M/mm3 (4.2-5.4); White Blood Count 7.9 K/mm3 (4.4-11.0)
[2021-01-31 11:01] LABS: Anion Gap 6 (5-15); BUN 17 mg/dL (7-18); BUN/Creat Ratio 21.5 RATIO (10-20); Calcium,Total 8.4 mg/dL (8.5-10.1); Chloride 108 mmol/L (98-107); Creatinine, Serum 0.79 mg/dL (0.55-1.02); EST Glomerular Filtration Rate 80 mL/min (>60); Est Glom Filt Rate - Afr Amer 97 mL/min (>60); Glucose 135 mg/dL (74-106); Potassium 3.9 mmol/L (3.5-5.1); Sodium Level 138 mmol/L (136-145)
== END ==
PROVIDERS: PCP Family Medicine; Referring Provider Physician Assistant; Visit Provider Physician Assistant
DX: Z01.810 Encounter for preprocedural cardiovascular examination (principal); Z01.818 Encounter for other preprocedural examination
CPT/HCPCS: 36415; 80048; 85027; 93005

== ENCOUNTER → 2024-05-07 | Outpatient (CLI) | payer OTHER, SELFPAY ==
--- NOTE | 2024-05-07 07:15 | CT_ITS ---
PROCEDURE: CT lower extremity without IV contrast REASON FOR EXAM: Posttraumatic osteoarthritis TECHNIQUE: Multisequence multiplanar MR images of the right knee were obtained without the administration of intravenous contrast. Limited axial images through the right hip and ankle were also obtained. Two- dimensional coronal and sagittal reformatted images were reconstructed. Low-dose imaging technique was utilized. COMPARISON: None. FINDINGS: See impression CT/Extremity Lower without Contra IMPRESSION: Advanced tricompartmental right knee osteoarthritis including near [id number]-dwdl articulation, marginal osteophytes and small subcortical cysts. Small right knee joint effusion. Negative for acute fractu re or subluxation. Small Ruiz's cyst. Mild right hip osteoarthritis. Mild tibialis posterior tenosynovitis. Os treasure cular. Plantar calcaneal spur. One or more dose reduction techniques were used (e.g., Automated exposure contr ol, adjustment of the mA and/or kV according to patient size, use of iterative reconstruction technique). Reading Location: [facility]
[2024-05-07 08:11] LABS: Absolute Neutrophil Count 3.5 X10^3/uL (2.0-7.7); Basophil# 0.04 X10^3/uL; Basophil% 0.6 % (0-1); Eosinophil# 0.14 X10^3/uL; Eosinophils% 2.2 % (0-5); Hematocrit 43.4 % (37-47); Hemoglobin 14.4 g/dL (12.0-15.0); Lymphocyte % 31.7 % (19-41); Mean Corp Hgb Conc 33.2 g/dL (32-36); Mean Corpuscular Volume 84.3 fL (81-99); Mean Platelet Vol. 9.5 fl (6.2-12.0); Monocyte# 0.61 X10^3/uL; Monocyte% 9.7 % (0-10); NRBC Flagged by Analyzer 0 % (0-5); Neutrophil % 55.5 % (47-70); Platelet Count 190 K/mm3 (150-450); RBC Distribution Width CV 13.4 % (11.6-14.6); RBC Distribution Width SD 41.8 fl (35.1-43.9); Red Blood Count 5.15 M/mm3 (4.2-5.4); White Blood Count 6.3 K/mm3 (4.4-11.0)
[2024-05-07 08:39] LABS: Albumin, Serum 3.9 g/dL (3.2-5.0); Anion Gap 6 (5-15); BUN 18 mg/dL (7-18); BUN/Creat Ratio 22.5 RATIO (10-20); Calcium,Total 9.4 mg/dL (8.5-10.1); Chloride 105 mmol/L (98-107); EST Glomerular Filtration Rate 79 mL/min (>60); Est Glom Filt Rate - Afr Amer 95 mL/min (>60); Glucose 93 mg/dL (74-106); Potassium 4.1 mmol/L (3.5-5.1); Sodium Level 140 mmol/L (136-145)
[2024-05-07 08:59] LABS: Hemoglobin A1c 5.9 % (3.8-5.6)
== END | disposition home or self-care (01) ==
LOC: CT 07:14
PROVIDERS: PCP Family Medicine; Referring Provider Student in an Organized Health Care Education/Training Program; Visit Provider Student in an Organized Health Care Education/Training Program
DX: Z01.818 Encounter for other preprocedural examination (principal); Z01.810 Encounter for preprocedural cardiovascular examination; M17.31 Unilateral post-traumatic osteoarthritis, right knee
CPT/HCPCS: 36415; 73700; 80048; 82040; 83036; 85025; 87081; 93005